=== PATIENT | male | born 1950 | race Two or more races ===

== ENCOUNTER → 2020-07-18 | Outpatient (CLI) | payer OTHER ==
[~2020-07-18] MED LIST: ACET500 PO; ALBU90OI INH; ASPI325 PO; Ambien5 MG PO; CARV6.25 PO; Coreg6.25 MG PO; DULERA 200 MCG/13 GM INH; ENTRESTO 24 MG1 EACH PO; FURO20 PO; FURO40 PO; LISI5 PO; Lasix40 MG PO; POTA10T PO; PRAV20 PO; SPIR25 PO; WARF5 PO; XARELTO20 MG PO
[2020-07-18 20:29] LABS: Anion Gap 6 mmol/L (6-16); Blood Urea Nitrogen 11 mg/dL (8-24); Bun/Creatinine Ratio 9.8 (12.0-20.0); CO2, Blood 26 mmol/L (21-32); Calcium, Blood 8.9 mg/dL (8.5-10.1); Chloride, Blood 109 mmol/L (98-108); Creatinine, Blood 1.12 mg/dL (0.60-1.20); Glomerular Filtration Rate >60 (60-); Glucose, Blood 88 mg/dL (70-99); Potassium, Blood 5.1 mmol/L (3.5-5.5); Sodium, Blood 141 mmol/L (136-145)
== END | disposition home or self-care (01) ==
LOC: LAB SHORT 18:28 → PLD 18:28
PROVIDERS: Nurse Practitioner
DX: I48.91 Unspecified atrial fibrillation (principal); I10 Essential (primary) hypertension
CPT/HCPCS: 80048; 84443

== ENCOUNTER → 2021-02-02 | Outpatient (CLI) | payer OTHER ==
[2021-02-02 17:07] LABS: BASOPHILS ABSOLUTE AUTO 0.07 K/mm3 (0.00-0.23); BASOPHILS PERCENT AUTO 1 % (0-2); EOSINOPHILS ABSOLUTE AUTO 0.19 K/mm3 (0.00-0.68); EOSINOPHILS PERCENT AUTO 2 % (0-6); Hemoglobin 18.2 g/dL (13.5-17.5); IMMATURE GRAN ABSOLUTE AUTO 0.06 K/mm3 (0.00-0.10); IMMATURE GRAN PERCENT AUTO 1 % (0-1); LYMPHOCYTES ABSOLUTE AUTO 1.79 K/mm3 (0.84-5.20); LYMPHOCYTES PERCENT AUTO 19 % (21-46); MONOCYTES ABSOLUTE AUTO 0.61 K/mm3 (0.16-1.47); MONOCYTES PERCENT AUTO 7 % (4-13); Mean Corpuscular HGB 32.3 pg (26.0-34.0); Mean Corpuscular HGB Conc 32.4 g/dL (31.5-36.5); Mean Corpuscular Volume 100 fL (80-100); NEUTROPHILS ABSOLUTE AUTO 6.68 K/mm3 (1.96-9.15); NEUTROPHILS PERCENT AUTO 71 % (41-73); Platelet Count 166 K/mm3 (150-400); RDW Coefficient Variation 13.6 % (11.7-14.2); RDW Standard Deviation 51.2 fL (35.1-46.3); Red Blood Cell Count 5.64 M/mm3 (4.30-5.90)
[2021-02-02 17:11] LABS: Hematocrit 56.2 % (37.0-53.0); Mean Platelet Volume 13.8 fL (9.1-12.4)
[2021-02-02 17:20] LABS: CHOL/HDL RATIO 5.8; Cholesterol 174 mg/dL (50-200); HDL Cholesterol 30 mg/dL (>39); LDL/HDL RATIO 3.9; Low Density Lipoprotein Chol 116 mg/dL (0-110); Triglycerides 140 mg/dL (30-160); Very Low Density Lipoprot Chol 28 mg/dL (6-32)
[2021-02-02 17:57] LABS: Alanine Aminotransfer (ALT/SGP 24 U/L (12-78); Albumin, Blood 3.7 g/dL (3.4-5.0); Albumin/Globulin Ratio 0.9 (0.8-1.8); Alk Phos 83 U/L (50-136); Anion Gap 4 mmol/L (6-16); Aspartate Aminotrans (AST/SGOT 8 U/L (12-37); Bilirubin, Total 0.6 mg/dL (0.1-1.0); Blood Urea Nitrogen 14 mg/dL (8-24); Bun/Creatinine Ratio 12.1 (12.0-20.0); CO2, Blood 26 mmol/L (21-32); Calcium, Blood 8.6 mg/dL (8.5-10.1); Chloride, Blood 111 mmol/L (98-108); Creatinine, Blood 1.16 mg/dL (0.60-1.20); Globulin, Blood 3.9 g/dL (2.2-4.0); Glomerular Filtration Rate >60 (60-); Glucose, Blood 107 mg/dL (70-99); Potassium, Blood 4.9 mmol/L (3.5-5.5); Sodium, Blood 141 mmol/L (136-145); Total Protein, Blood 7.6 g/dL (6.4-8.2)
== END | disposition home or self-care (01) ==
LOC: LAB SHORT 12:20
PROVIDERS: Nurse Practitioner
DX: E78.00 Pure hypercholesterolemia, unspecified (principal); I10 Essential (primary) hypertension; I48.91 Unspecified atrial fibrillation; N40.1 Benign prostatic hyperplasia with lower urinary tract symptoms; R73.03 Prediabetes
CPT/HCPCS: 80053; 80061; 83036; 84153; 84443; 85025

== ENCOUNTER 2022-12-13 15:45 | Inpatient (IN) | payer OTHER ==
[~2022-12-13] VITALS: Ht 180.3 cm; Wt 75.5 kg
[2022-12-13 16:30] LABS: BASOPHILS ABSOLUTE AUTO 0.08 K/mm3 (0.00-0.23); BASOPHILS PERCENT AUTO 1 % (0-2); EOSINOPHILS ABSOLUTE AUTO 0.34 K/mm3 (0.00-0.68); EOSINOPHILS PERCENT AUTO 4 % (0-6); Hematocrit 48.9 % (37.0-53.0); Hemoglobin 16.2 g/dL (13.5-17.5); IMMATURE GRAN ABSOLUTE AUTO 0.03 K/mm3 (0.00-0.10); IMMATURE GRAN PERCENT AUTO 0 % (0-1); LYMPHOCYTES ABSOLUTE AUTO 2.27 K/mm3 (0.84-5.20); LYMPHOCYTES PERCENT AUTO 24 % (21-46); MONOCYTES ABSOLUTE AUTO 0.61 K/mm3 (0.16-1.47); MONOCYTES PERCENT AUTO 6 % (4-13); Mean Corpuscular HGB 30.9 pg (26.0-34.0); Mean Corpuscular HGB Conc 33.1 g/dL (31.5-36.5); Mean Corpuscular Volume 93 fL (80-100); NEUTROPHILS ABSOLUTE AUTO 6.13 K/mm3 (1.96-9.15); NEUTROPHILS PERCENT AUTO 65 % (41-73); Platelet Count 182 K/mm3 (150-400); RDW Coefficient Variation 12.6 % (11.7-14.2); RDW Standard Deviation 43.7 fL (35.1-46.3); Red Blood Cell Count 5.25 M/mm3 (4.30-5.90); White Blood Cell Count 9.46 K/mm3 (4.00-11.30)
[2022-12-13 17:04] LABS: Albumin, Blood 3.8 g/dL (3.4-5.0); Bilirubin, Total 0.6 mg/dL (0.1-1.0); Bun/Creatinine Ratio 17.8 (12.0-20.0); Calcium, Blood 9.1 mg/dL (8.5-10.1); Creatinine, Blood 1.85 mg/dL (0.60-1.20); Globulin, Blood 3.7 g/dL (2.2-4.0); Magnesium, Blood 2.1 mg/dL (1.6-2.4); Potassium, Blood 4.7 mmol/L (3.5-5.5); Total Protein, Blood 7.5 g/dL (6.4-8.2)
[2022-12-13] MEDS ORDERED: ELIQUIS5 M2 PO (18:40)
[2022-12-13] MEDS ORDERED: METO50ER (18:40)
[2022-12-13] MEDS ORDERED: METO25 PO (18:40)
[2022-12-13] MEDS ORDERED: PACERONE100 M1 PO (18:40)
[2022-12-13] MEDS ORDERED: FINA5 PO (18:41)
[2022-12-13] MEDS ORDERED: TAMS.4ER PO (18:41)
[2022-12-13 19:07] LABS: International Normalized Ratio 1.19; Prothrombin Time Results 12.4 Sec (9.7-11.5)
[2022-12-14] VITALS (62 sets, daily range): BP systolic 62–134; BP diastolic 36–103
[2022-12-14] MEDS ORDERED: TRAM50 PO (02:10)
[2022-12-14] MEDS ORDERED: SPIRONOLACTONE25 MG PO (02:12)
[2022-12-14 03:36] LABS: BASOPHILS ABSOLUTE AUTO 0.05 K/mm3 (0.00-0.23); BASOPHILS PERCENT AUTO 1 % (0-2); EOSINOPHILS ABSOLUTE AUTO 0.25 K/mm3 (0.00-0.68); EOSINOPHILS PERCENT AUTO 3 % (0-6); Hematocrit 45.6 % (37.0-53.0); IMMATURE GRAN ABSOLUTE AUTO 0.03 K/mm3 (0.00-0.10); IMMATURE GRAN PERCENT AUTO 0 % (0-1); LYMPHOCYTES ABSOLUTE AUTO 1.72 K/mm3 (0.84-5.20); LYMPHOCYTES PERCENT AUTO 23 % (21-46); MONOCYTES ABSOLUTE AUTO 0.53 K/mm3 (0.16-1.47); MONOCYTES PERCENT AUTO 7 % (4-13); Mean Corpuscular HGB 30.7 pg (26.0-34.0); Mean Corpuscular HGB Conc 32.9 g/dL (31.5-36.5); Mean Corpuscular Volume 93 fL (80-100); NEUTROPHILS ABSOLUTE AUTO 4.88 K/mm3 (1.96-9.15); NEUTROPHILS PERCENT AUTO 65 % (41-73); Platelet Count 179 K/mm3 (150-400); RDW Coefficient Variation 12.7 % (11.7-14.2); RDW Standard Deviation 43.8 fL (35.1-46.3); Red Blood Cell Count 4.88 M/mm3 (4.30-5.90); White Blood Cell Count 7.46 K/mm3 (4.00-11.30)
[2022-12-14 03:54] LABS: Albumin, Blood 3.1 g/dL (3.4-5.0); Bilirubin, Total 0.8 mg/dL (0.1-1.0); Bun/Creatinine Ratio 20.6 (12.0-20.0); Calcium, Blood 8.2 mg/dL (8.5-10.1); Creatinine, Blood 1.41 mg/dL (0.60-1.20); Globulin, Blood 3.1 g/dL (2.2-4.0); Potassium, Blood 4.5 mmol/L (3.5-5.5); Total Protein, Blood 6.2 g/dL (6.4-8.2)
--- NOTE | 2022-12-14 05:49 | NUR ---
HAVE TITRATED LEVOPHED UP TO 6 MCG'S/MIN. MAP MAINTAINS > 65 PERCENT. PT HAS NO COMPLAINTS OF CHEST PAIN OR PRESSURE. DENIES VERTIGO. NO VISUAL CHANGES. DINKEY ENGINE OPERATOR EQUAL. PUSH/PULL WITH FEET EQUAL. PUPILS PERRLA. PT ATTEMPTS TO URINATE, AND IS UNABLE. PT ADDS THAT HE NEEDS TO SELF CATHETERIZE AT HOME ABOUT ONCE EVERY 2 TO 3 MONTHS. BLADDER SCAN DONE WITH 339 VALUE RETURNED. 14 BOLIVIAN COUDE CATHETER USED FOR STRAIGHT CATH. RETURN OF 400 ML YELLOW URINE. DID SEND SAMPLE TO LAB FOR UA. THIS TAKING INTO CONSIDERATION PT SELF CATHS AT HOME. WILL CONTINUE TO MONITOR PT, AND WILL REPORT OFF TO ONCOMING RN.
[2022-12-14 06:35] LABS: Source, Urine Straight Cath
[2022-12-14 06:40] LABS: Appearance, Urine Clear (Clear); Bilirubin, Urine Neg (Neg); Blood, Urine 2+ (Neg); Color, Urine Yellow (P-Yellow); Glucose Qualitative, Urine Neg (Neg); Ketones, Urine 2+ (Neg); Leukocyte Esterase, Urine 1+ (Neg); Nitrite, Urine Neg (Neg); Protein, Urine 1+ (Neg); Specific Gravity, Urine 1.015 (1.003-1.022); Urobilinogen, Urine NORM (Normal)
[2022-12-14 06:55] LABS: Squamous Epithelial Cells Few /hpf (Few)
[2022-12-14 06:56] LABS: Bacteria Mod /hpf
[2022-12-14 06:57] LABS: Mucus Mod (0-Heavy)
--- NOTE | 2022-12-14 07:00 | NUR ---
ASSUMPTION OF CARE PT RECEIVING LEVOPHED 6MCG/MIN. HE IS ALERT AND ORIENTED. PT STANDS AT BEDSIDE WITH MINIMAL ASSISTANCE TO USE URINAL AND VOIDED 100ML. BED IN LOW POSITION AND CALL LIGHT WITHIN REACH. SEE SHIFT ASSESSMENT.
--- NOTE | 2022-12-14 14:44 | NUR ---
UPDATE PT CONTINUES TO RECEIVE LEVOPHED 2MCG/MIN. ECHO COMPLETED THIS AM AND PACEMAKER INTERRIGATION DONE THIS AFTERNOON. PT DENIES DIZZINESS, VISION CHANGES, AND HEADACHE. PT STS HE HAS BEEN HAVING DIFFICULTY WITH HIS R HAND OVER THE LAST 2-3 WEEKS. HE GIVES THE EXAMPLE THAT WHEN HE IS TRYING TO TEXT HE TOUCHES THE WRONG LETTERS OR MULTIPLE BUTTONS AT THE SAME TIME. HE DENIES R LEG WEAKNESS DURING THESE TIMES. PT STS HE HAS NOT HAD THESE SYMPTOMS SINCE ADMISSION TO THE HOSPITAL. HIS , ALIA, AT BEDSIDE. SHE STS PT TAKES HIS MEDICATIONS DAILY BUT "HAS NOT HAD HIGH BLOOD PRESSURE FOR YEARS". PT'S FEELS THIS EPISODE MAY BE RELATED TO HIS MEDICATIONS.
[2022-12-14 15:33] LABS: Hemoglobin 15.5 g/dL (13.5-17.5)
[2022-12-14 17:51] LABS: Source, Urine Foley catheter
[2022-12-14 17:59] LABS: Appearance, Urine Hazy (Clear); Bilirubin, Urine Neg (Neg); Blood, Urine 5+ (Neg); Color, Urine Amber (P-Yellow); Glucose Qualitative, Urine Neg (Neg); Ketones, Urine 2+ (Neg); Leukocyte Esterase, Urine 2+ (Neg); Nitrite, Urine Pos (Neg); Protein, Urine 3+ (Neg); Specific Gravity, Urine 1.015 (1.003-1.022); Urobilinogen, Urine NORM (Normal)
--- NOTE | 2022-12-14 18:17 | NUR ---
SHIFT SUMMARY LEVOPHED ON STANDBY AT 1620, NS INFUSING AT 100ML/HR. PT IS ALERT AND ORIENTED WITH PLEASANT AFFECT. PT HAS DENIED VISION CHANGES AND WEAKNESS THROUGHOUT THE DAY. AFIB ON MONITOR WITH RATE 50S-80S. SBP CURRETNLY 120S-130S. HE IS ON RA WHILE AWAKE, 2L NC WHILE SLEEPING. ABDOMEN SOFT, BOWEL TONES ACTIVE, AND 1 BM THIS SHIFT. PT HAD DIFFICULTY WITH URINATING. USED STRAIGHT CATH TWICE THIS SHIFT. URINE THIS AM WAS PALE YELLOW, THIS AFTERNOON DARK LOAN/BROWN. INDWELLING ROBLEDO PLACED AND HAD IMMEDIATE DARK YELLOW/PINK OUTPUT. FAMILY AT BEDSIDE. BED IN LOW POSITION AND CALL LIGHT WITHIN REACH.
[2022-12-14 18:23] LABS: Red Blood Cells, Urine TNTC /hpf (0-2)
[2022-12-14 18:24] LABS: Bacteria Many /hpf
[2022-12-14 18:26] LABS: Squamous Epithelial Cells Rare /hpf (Few); Yeast/Fungi Urine Many /hpf
--- NOTE | 2022-12-14 21:50 | NUR ---
ASSUMED CARE ASSUMED CARE AT 1900. PT A/O X 4. EQUAL HOUSEHOLD MANAGER STRENGTH AND EQUAL FOOT PUSH/PULL. DENIES DIZZINESS, VISION CHANGES, OR HEADACHE. VSS. DIFFICULT TO GET ACCURATE BP D/T PT LAYING ON SIDE TO SLEEP. BP WNL WHEN PT IS LAYING ON BACK. ON RA WHEN AWAKE AND 2LNC WHEN SLEEPING. AFIB RATE 60-70'S. CALL TO HOSP REGARDING PT REQUESTING HOME DOSE OF AMBIEN. ORDER RECEIVED FOR MELATONIN D/T MONITORING PT NEURO STATUS. EDUCATION PROVIDED TO PT AND PT AGREEABLE TO POC. ROBLEDO PATENT AND DRAINING TO GRAVITY. MINIMAL LEAKING NOTED WHEN PT BARES DOWN. URINE CLEAR YELLOW IN TUBE.
--- NOTE | 2022-12-14 23:56 | NUR ---
UPDATE PT CALLED THIS RN INTO ROOM APPROX 2310. PT STATED HE JUST HAD AN EPISODE OF LIGHTHEADEDNESS, SOB, FEELING HOT, NAUSEOUS, AND THAT THE "ROOM WAS SPINNING". PT STATED THIS EPISODE LASTED 2-3 MINS. DENIES ANY VISION CHANGES. NEURO EXAM COMPLETED. NO NEW CHANGES. VSS.
[2022-12-15] VITALS (27 sets, daily range): BP systolic 77–151; BP diastolic 52–92
[2022-12-15 03:39] LABS: BASOPHILS ABSOLUTE AUTO 0.04 K/mm3 (0.00-0.23); BASOPHILS PERCENT AUTO 1 % (0-2); EOSINOPHILS ABSOLUTE AUTO 0.29 K/mm3 (0.00-0.68); EOSINOPHILS PERCENT AUTO 4 % (0-6); Hematocrit 42.6 % (37.0-53.0); Hemoglobin 14.2 g/dL (13.5-17.5); IMMATURE GRAN ABSOLUTE AUTO 0.02 K/mm3 (0.00-0.10); IMMATURE GRAN PERCENT AUTO 0 % (0-1); LYMPHOCYTES ABSOLUTE AUTO 1.48 K/mm3 (0.84-5.20); LYMPHOCYTES PERCENT AUTO 21 % (21-46); MONOCYTES ABSOLUTE AUTO 0.58 K/mm3 (0.16-1.47); MONOCYTES PERCENT AUTO 8 % (4-13); Mean Corpuscular HGB 30.8 pg (26.0-34.0); Mean Corpuscular HGB Conc 33.3 g/dL (31.5-36.5); Mean Corpuscular Volume 92 fL (80-100); NEUTROPHILS ABSOLUTE AUTO 4.52 K/mm3 (1.96-9.15); NEUTROPHILS PERCENT AUTO 65 % (41-73); Platelet Count 134 K/mm3 (150-400); RDW Coefficient Variation 12.5 % (11.7-14.2); RDW Standard Deviation 43.1 fL (35.1-46.3); Red Blood Cell Count 4.61 M/mm3 (4.30-5.90); White Blood Cell Count 6.93 K/mm3 (4.00-11.30)
[2022-12-15 03:55] LABS: Bun/Creatinine Ratio 13.1 (12.0-20.0); Creatinine, Blood 1.07 mg/dL (0.60-1.20); Potassium, Blood 4.4 mmol/L (3.5-5.5)
--- NOTE | 2022-12-15 06:01 | NUR ---
SHIFT SUMMARY SEE PRIOR NOTES. PT HAD ONE REPORTED EPISODE OF DIZZINESS THIS SHIFT THAT SPONTANEOUSLY RESOLVED. NO OTHER NEURO CHANGES NOTED. VSS. BP SOFT AT TIMES. MAP GREATER THEN 65. ON 2LNC WHEN ASLEEP. PT UP TO CHAIR ONCE THIS AM AND THEN BACK TO BED. ROBLEDO IN PLACE FOR RETENTION, DRAINING TO GRAVITY.
--- NOTE | 2022-12-15 07:00 | NUR ---
ASSUMPTION OF CARE PT ALERT AND ORIENTED. PT C/O CHRONIC BACK/SHOULDER PAIN. PT ASSISTED TO RECLINER. PT STS HE HAD ONE EPISODE OF VISION CHANGES AND DIZZINESS OVERNIGHT. HE DESCRIBES THIS HE WAS ASLEEP AND FEELING " IF THE WORLD WAS SPINNING" AND "BLURRY, ALMOST LIKE DOUBLE VISION". HE STS THIS LASTED APPROX 3-5 MIN AND RESOLVED. PT STS HE FEELS MOSTLY BACK TO HIS BASELINE OTHER THAN HIS R HAND HAS DIFFICULTY WITH FINE MOTOR SKILLS AT TIMES. HE IS ON RA WHILE AWAKE WITH SPO2 >93%. BP STABLE WITH MAP >65. AFIB ON MONITOR WITH RATE 70S-80S. ROBLEDO PATENT AND DRAINING YELLOW URINE TO GRAVITY. SEE SHIFT ASSESSMENT.
--- NOTE | 2022-12-15 10:00 | NUR ---
TRANSFER TO PCU PT TRANSITIONED TO PCU STATUS. PT VERBALIZES UNDERSTANDING AND STS HE WILL NOTIFY HIS FAMILY OF THE ROOM CHANGE. ALL BELONGINGS TRANSFERRED WITH PT. BEDSIDE REPORT GIVEN TO RODNEY DWYER.
--- NOTE | 2022-12-15 18:58 | NUR ---
PT ARRIVED FROM ICU THIS MORNING, RECIEVED BEDSIDE REPORT FROM DAYNE DWYER. PT A/O X4, ANSWERIN GQUESTIONS APPROPRIATELY IN FULL SENTENCES. PT ABLE TO AMBULATE FROM CHAIR TO GURNEY WITHOUT DIFFICULTY. ROBLEDO IN PLACE, THIS IS DAY 2 OF ROBLEDO. PT WITH DARK YELLOW URINE DRAINING TO GRAVITY. BLOOD PRESSURES ARE BNOTED TO BE SOFT T/O THE DAY. PT REPORTS BACK PAIN, WHICH IS CONTROLED WITH TRAMADOL AND TYLENOL. CORTISOL LEVELS WERE DRAWN TODAY.
--- NOTE | 2022-12-15 20:10 | NUR ---
ASSUMED PT CARE FROM RODNEY DWYER ON . PT IS A&OX4. DENIES ANY COMPLAINTS AT THIS TIME. STATES VISION IS AT BASELINE FOR HIM. NO LIGHTHEADEDNESS OR DIZZIENESS. DENIES ANY SOB, CHEST PAIN/PRESSURE, OR NAUSEA. ROBLEDO CATHETER DRIANING TEA COLORED URINE WITHOUT DIFFICULTY. VITAL SIGNS STABLE. DENIES NEEDS AT THIS TIME. CALL LIGHT IN REACH. BROTHER ATTENTIVE AT BEDSIDE.
--- NOTE | 2022-12-16 00:47 | NUR ---
PT REPORTS FEELING ROBLEDO IS LEAKING, SMALL AMOUNT OF URINE NOTED ON CHUCKS. LINENS CHANGED. ROBLEDO FLUSHED WITH STERILE WATER, SLUGGISH RETURN RECEIVED BUT ABLE TO ASPIRATE FULL AMOUNT OF FLUID BACK, NO CLOTS OR SEDIMENT NOTED. BLADDER SCANNED, FOUND TO BE EMPTY. INFORMED TO NOTIFY IF SENSATION OCCURS AGAIN. CALL LIGHT IN REACH.
[2022-12-16 04:17] VITALS: BP 98/59
--- NOTE | 2022-12-16 04:35 | NUR ---
PT COMPLAINING OF OCCAIONALLY FEELING "LIKE I NEED TO PUSH" TO VOID, SMALL AMOUNT OF LEAKGE NOTED AROUND CATHETER. ROBLEDO CATHETER [place] DEFLATED, FOUND TO ONLY HAVE 8CC IN [place]. [place] FILLED WITH 10CC DIRECTED ON ROBLEDO PORT. PT INFORMED TO CALL IF HE FEELS NEED TO PUSH WITH ROBLEDO IN PLACE. CALL LIGHT IN REACH. BED ALARM ON.
[2022-12-16 08:54] VITALS: BP 99/69
[2022-12-16 12:54] VITALS: BP 101/60
[2022-12-16 15:21] LABS: Hematocrit 44.7 % (37.0-53.0); Hemoglobin 14.9 g/dL (13.5-17.5)
[2022-12-16 17:08] VITALS: BP 102/61
--- NOTE | 2022-12-16 18:20 | NUR ---
PT RESTING WELL IN BED T/O THE DAY. PT HAS BEEN STARTED BACK ON FLOMAX ON PROSCAR THIS EVENING AND WAS STARTED ON FLUDOCORTISONE WELL THIS EVENING. PT HAD POOR APPETITE T/O THE DAY, BUT FAMILY DID BRING IN "IN AND OUT" BURGER FOR PT AND HE DID EAT AN ENTIRE CHEESEBURGER FOR DINNER WITH MEDICATIONS. VSS, PRESSURES WERE A BIT SOFT BUT STABLE. A/O X4. DENIES CP OR SOB. CONTINUES TO DRAIN TEA COLORED URINE TO GRAVITY FROM CATHETER.
[2022-12-16 19:23] VITALS: BP 114/99
--- NOTE | 2022-12-16 19:34 | NUR ---
ASSSUMED PT CARE FROM RODNEY DWYER ON . PT A&OX4. SITTING UP IN BED WATCHING TV. DENIES ANY VISION CHANGES OR DIZZIENESS TODAY. REPORTS WEAKNESS IN RIGHT ARM IS "NEITHER BETTER NOR WORSE THEN IT HAS BEEN". DENIES ANY CHEST PAIN, SOB, OR NAUSEA. ROBLEDO CATHETER DRAINING TEA COLORED URINE WITHOUT DIFFICULTY. PT REPORTS "I HAVEN'T FELT LIKE I NEEDED TO PUSH IN A WHILE, THEY GAVE ME FLOMAX". WILL CONTINUE TO MONITOR. DENIES NEEDS AT THIS TIME. CALL LIGHT IN REACH.
[2022-12-17 00:22] VITALS: BP 91/66
[2022-12-17 04:00] VITALS: BP 96/66
[2022-12-17 04:18] LABS: Bun/Creatinine Ratio 8.5 (12.0-20.0); Calcium, Blood 8.4 mg/dL (8.5-10.1); Creatinine, Blood 1.17 mg/dL (0.60-1.20)
--- NOTE | 2022-12-17 06:35 | NUR ---
SHIFT SUMMARY: NO ACUTE CHANGES NOTED DURING THIS SHIFT. PT SLEEPING COMFORTABLY IN BED FOR THE MAJORITY OF THIS SHIFT. HR S-FIB IN THE 90'S, WELL CONTROLED. PLACED ON 2LPM VIA NC WHEN SLEEPING DUE TO DESATRUATION INTO 80'S. WHEN AWAKE ON RA. CALL LIGHT IN REACH.
[2022-12-17 08:09] VITALS: BP 106/90
[2022-12-17 11:15] LABS: Free Thyroxine 1.47 ng/dL (0.70-1.60); Thyroid Stimulating Hormone 2.53 uIU/mL (0.360-4.800)
[2022-12-17 11:23] VITALS: BP 118/74
--- NOTE | 2022-12-17 11:40 | NUR ---
ROBLEDO REMOVED PER MD ORDER
[2022-12-17 17:06] VITALS: BP 115/77
--- NOTE | 2022-12-17 17:46 | NUR ---
SHIFT SUMMARY PT ALERT AND ORIENTED X 4. HR STABLE. TACHY W/EXERTION. MD AWARE. BP STABLE. SCHEDULED MIDODRINE GIVEN. PT SBA IN ROOM. NO CP OR PRESSURE REPORTED. PT AGITATED THIS AFTERNOON. PT WANTING TO BE DISHCARGED HOME, RN EXPLAINED TO PT THAT ORDERS FOR OXIMETRY STUDY W/RT TO BE DONE TONIGHT D/T NEED FOR HOME 02 AND NO ORDERS FOR DC AT THIS TIME. MD NOTIFIED AND MD TO BEDSIDE TO DISCUSS REASONING FOR PT TO STAY IN HOSPITAL. PT STATES UNDERSTANDING. FAMILY AT BEDSIDE DURING CONVERSATION. OXYGEN SATURATION MAINTAINED ABOVE 92% ON RA WHILE AWAKE. PT PLACED ON 2 L VIA NC WHEN SLEEPING D/T DESAT INTO 80'S. CALL LIGHT WITHIN REACH. WILL CONT TO MONITOR UNTIL REPORT GIVEN TO NIGHTSHIFT RN.
[2022-12-17 20:00] VITALS: BP 106/60
--- NOTE | 2022-12-17 20:47 | NUR ---
ASSUMED PT CARE FROM YOSVANY DWYER ON . PT IS A&OX4. DENIES ANY VISION CHANGES THIS EVENING. DENIES ANY SOB OR CHEST PAIN. AMBUALTING TO BATHROOM, VOIDING WITHOUT DIFFICULTY AT THIS TIME. VITAL SIGNS STABLE. DENIES NEEDS AT THIS TIME. CALL LIGHT IN REACH.
[2022-12-18] VITALS (7 sets, daily range): BP systolic 96–153; BP diastolic 56–100
--- NOTE | 2022-12-18 01:11 | NUR ---
PT RESTING IN BED WITH EYES CLOSED. SLEEP STUDY IN PROGRESS. CALL LIGHT IN REACH.
[2022-12-18 05:56] LABS: Albumin, Blood 3.2 g/dL (3.4-5.0); Albumin/Globulin Ratio 0.9 (0.8-1.8); Bilirubin, Total 0.7 mg/dL (0.1-1.0); Bun/Creatinine Ratio 12.9 (12.0-20.0); Calcium, Blood 9.2 mg/dL (8.5-10.1); Creatinine, Blood 1.24 mg/dL (0.60-1.20); Globulin, Blood 3.5 g/dL (2.2-4.0); Potassium, Blood 4.2 mmol/L (3.5-5.5); Total Protein, Blood 6.7 g/dL (6.4-8.2)
--- NOTE | 2022-12-18 06:00 | NUR ---
SHIFT SUMMARY: NO ACUTE CHANGES NOTED OVERNIGHT. SLEEP STUDY COMPLETED BY RESPIRATORY THERAPY. PT HAS DENIED ANY COMPLAINTS OR CONCERNS. CALL LIGHT IN REACH.
--- NOTE | 2022-12-18 08:54 | NUR ---
ASSUMED CARE OF PT AT 0700. 0830 PT UP OOB AMBULATING TO RESTROOM, HR NOTED TO INCREASE TO 150-160s. PT ASYMPTOMATIC AND HR DECREASED TO 90-100s WHEN BACK IN BED RESTING. DR PARMAR NOTIFIED, PT TAKES AMIO AND METOP AT HOME, NEW ORDERS RECEIVED.
--- NOTE | 2022-12-18 17:48 | NUR ---
SHIFT SUMMARY PT'S HR HAS BEEN CONTROLED WELL ON METOP AND AMIO DOSAGE, RESTING HR IN THE 70s AND 100s WITH ACTIVITY. PT HAD CT SCAN TODAY AND HAS AN ADDITIONAL CT SCAN ORDERED, HAD TO BE POSTPONED UNTIL TOMORROW D/T CONTRAST LOAD PER RADIOLOGY. NO OTHER CHANGES T/O THE SHIFT. SEE DOCUMENTED VS AND ASSESSMENT. PT IS ABLE TO AMBULATE IN ROOM INDEPENDENTLY, USE CALL LIGHT FOR NEEDS. WILL CONTINUE TO MONITOR AND GIVE REPORT TO NOC SHIFT RN.
[2022-12-19 04:33] VITALS: BP 96/69
[2022-12-19 04:51] LABS: BASOPHILS ABSOLUTE AUTO 0.06 K/mm3 (0.00-0.23); BASOPHILS PERCENT AUTO 1 % (0-2); EOSINOPHILS ABSOLUTE AUTO 0.23 K/mm3 (0.00-0.68); EOSINOPHILS PERCENT AUTO 2 % (0-6); Hematocrit 41.5 % (37.0-53.0); Hemoglobin 13.8 g/dL (13.5-17.5); IMMATURE GRAN ABSOLUTE AUTO 0.04 K/mm3 (0.00-0.10); IMMATURE GRAN PERCENT AUTO 0 % (0-1); LYMPHOCYTES ABSOLUTE AUTO 1.83 K/mm3 (0.84-5.20); LYMPHOCYTES PERCENT AUTO 19 % (21-46); MONOCYTES ABSOLUTE AUTO 0.66 K/mm3 (0.16-1.47); MONOCYTES PERCENT AUTO 7 % (4-13); Mean Corpuscular HGB 30.5 pg (26.0-34.0); Mean Corpuscular HGB Conc 33.3 g/dL (31.5-36.5); Mean Corpuscular Volume 92 fL (80-100); NEUTROPHILS ABSOLUTE AUTO 6.84 K/mm3 (1.96-9.15); NEUTROPHILS PERCENT AUTO 71 % (41-73); Platelet Count 205 K/mm3 (150-400); RDW Coefficient Variation 12.5 % (11.7-14.2); RDW Standard Deviation 42.3 fL (35.1-46.3); Red Blood Cell Count 4.53 M/mm3 (4.30-5.90); White Blood Cell Count 9.66 K/mm3 (4.00-11.30)
[2022-12-19 05:18] LABS: Bun/Creatinine Ratio 15.8 (12.0-20.0); Calcium, Blood 8.6 mg/dL (8.5-10.1); Creatinine, Blood 1.2 mg/dL (0.60-1.20); Potassium, Blood 4.1 mmol/L (3.5-5.5)
--- NOTE | 2022-12-19 05:29 | NUR ---
SHIFT SUMMARY PT A&Ox4, CALLS AND COMMUNICATES NEEDS APPROPRIATELY, IND IN ROOM. Sp02> 92% ON RA WHILE AWAKE, 2L VIA NC WHILE ASLEEP, DENIES SOB. BP SOFT WITH SBP 90's, ASYMPTOMATIC. AFIB 80's, DENIES CP/PRESSURE. PT WITH NO C/O OF PAIN. CONTINENT OF URINE AND BOWEL. NO OTHER EVENTS, WILL REPORT TO ONCOMING RN.
[2022-12-19 07:22] VITALS: BP 96/58
[2022-12-19 10:59] VITALS: BP 94/59
[2022-12-19 14:03] VITALS: BP 95/81
[2022-12-19] MEDS ORDERED: MIDO5 PO (16:51)
[2022-12-19] MEDS ORDERED: FLUDROCORTISON0.1 M1 PO (16:51)
[2022-12-19] MEDS ORDERED: HYDCOR10 PO (16:51)
== END 2022-12-19 17:17 | disposition home or self-care (01) | DRG 123 ==
LOC: ER 15:45 → ICUW 22:39 → PCU 22:39 → ICUW 12-14 01:38 → PCU 12-15 09:50
PROVIDERS: Family Medicine; Family Medicine Adult Medicine; Physician Assistant; Student in an Organized Health Care Education/Training Program; ADMIT Internal Medicine
PROC: 3E033XZ Introduction of Vasopressor into Peripheral Vein, Percutaneous Approach (ICD-10-PCS; principal; 2022-12-13)
DX: G45.3 Amaurosis fugax (principal); I50.23 Acute on chronic systolic (congestive) heart failure; E87.1 Hypo-osmolality and hyponatremia; I48.20 Chronic atrial fibrillation, unspecified; N17.9 Acute kidney failure, unspecified; R57.9 Shock, unspecified; E27.40 Unspecified adrenocortical insufficiency; E78.00 Pure hypercholesterolemia, unspecified; H02.402 Unspecified ptosis of left eyelid; H57.03 Miosis; I70.0 Atherosclerosis of aorta; I11.0 Hypertensive heart disease with heart failure; R91.1 Solitary pulmonary nodule; F17.210 Nicotine dependence, cigarettes, uncomplicated; Z98.890 Other specified postprocedural states; Z79.02 Long term (current) use of antithrombotics/antiplatelets; Z95.1 Presence of aortocoronary bypass graft; Z79.899 Other long term (current) drug therapy; Z79.01 Long term (current) use of anticoagulants; Z95.0 Presence of cardiac pacemaker
CPT/HCPCS: 36415; 51701; 51702; 70496; 70498; 74170; 74177; 80048; 80053; 80400; 81001; 82024; 82533; 83735; 84439; 84443; 85014; 85018; 85025; 85610; 87086; 93005; 93010; 94760; 94762; 96361; 96365-59; 96366-59; 99291-25; A9270; C8929; G0103; J0834; J7030; J7060; Q9957; Q9967

== ENCOUNTER 2023-03-08 17:37 | Emergency (ER) | payer OTHER ==
[~2023-03-08] VITALS: Ht 172.7 cm; Wt 84.4 kg
[~2023-03-08 17:37] MED LIST changes: +ELIQUIS5 M2 PO; +FINA5 PO; +FLUDROCORTISON0.1 M1 PO; +HYDCOR10 PO; +METO25 PO; +METO50ER; +MIDO5 PO; +PACERONE100 M1 PO; +SPIRONOLACTONE25 MG PO; +TAMS.4ER PO; +TRAM50 PO
[2023-03-08 18:26] LABS: BASOPHILS ABSOLUTE AUTO 0.14 K/mm3 (0.00-0.23); BASOPHILS PERCENT AUTO 2 % (0-2); EOSINOPHILS ABSOLUTE AUTO 0.65 K/mm3 (0.00-0.68); EOSINOPHILS PERCENT AUTO 8 % (0-6); Hematocrit 40.3 % (37.0-53.0); Hemoglobin 13.3 g/dL (13.5-17.5); IMMATURE GRAN ABSOLUTE AUTO 0.04 K/mm3 (0.00-0.10); IMMATURE GRAN PERCENT AUTO 1 % (0-1); LYMPHOCYTES ABSOLUTE AUTO 2.45 K/mm3 (0.84-5.20); LYMPHOCYTES PERCENT AUTO 31 % (21-46); MONOCYTES ABSOLUTE AUTO 0.74 K/mm3 (0.16-1.47); MONOCYTES PERCENT AUTO 9 % (4-13); Mean Corpuscular Volume 91 fL (80-100); NEUTROPHILS ABSOLUTE AUTO 4.01 K/mm3 (1.96-9.15); NEUTROPHILS PERCENT AUTO 50 % (41-73); Platelet Count 371 K/mm3 (150-400); RDW Coefficient Variation 14.6 % (11.7-14.2); RDW Standard Deviation 47.9 fL (35.1-46.3); Red Blood Cell Count 4.43 M/mm3 (4.30-5.90); White Blood Cell Count 8.03 K/mm3 (4.00-11.30)
[2023-03-08 18:29] LABS: Mean Platelet Volume 13.7 fL (9.1-12.4)
[2023-03-08 18:50] LABS: Albumin, Blood 3.1 g/dL (3.4-5.0); Bilirubin, Total 0.4 mg/dL (0.1-1.0); Bun/Creatinine Ratio 12.2 (12.0-20.0); Calcium, Blood 8.3 mg/dL (8.5-10.1); Creatinine, Blood 0.9 mg/dL (0.60-1.20); Globulin, Blood 3.1 g/dL (2.2-4.0); Potassium, Blood 3.7 mmol/L (3.5-5.5); Total Protein, Blood 6.2 g/dL (6.4-8.2)
[2023-03-08 21:08] VITALS: BP 119/84
== END 2023-03-08 22:38 | disposition home or self-care (01) ==
LOC: ER 17:37
PROVIDERS: Emergency Medicine
DX: I11.0 Hypertensive heart disease with heart failure (principal); I50.9 Heart failure, unspecified; Z95.1 Presence of aortocoronary bypass graft; F17.210 Nicotine dependence, cigarettes, uncomplicated
CPT/HCPCS: 71046; 80053; 83880; 84484; 85025; 93005; 93010; 96374; 99285-25; J1940

== ENCOUNTER 2023-04-09 12:22 | Inpatient (IN) | payer OTHER ==
[~2023-04-09] VITALS: Ht 172.7 cm; Wt 82.6 kg
[2023-04-09 13:27] LABS: BASOPHILS ABSOLUTE AUTO 0.09 K/mm3 (0.00-0.23); BASOPHILS PERCENT AUTO 1 % (0-2); EOSINOPHILS PERCENT AUTO 5 % (0-6); Hematocrit 44.4 % (37.0-53.0); Hemoglobin 14.6 g/dL (13.5-17.5); IMMATURE GRAN ABSOLUTE AUTO 0.03 K/mm3 (0.00-0.10); IMMATURE GRAN PERCENT AUTO 0 % (0-1); LYMPHOCYTES ABSOLUTE AUTO 2.06 K/mm3 (0.84-5.20); LYMPHOCYTES PERCENT AUTO 27 % (21-46); MONOCYTES ABSOLUTE AUTO 0.75 K/mm3 (0.16-1.47); MONOCYTES PERCENT AUTO 10 % (4-13); Mean Corpuscular HGB 29.8 pg (26.0-34.0); Mean Corpuscular HGB Conc 32.9 g/dL (31.5-36.5); Mean Corpuscular Volume 91 fL (80-100); NEUTROPHILS ABSOLUTE AUTO 4.18 K/mm3 (1.96-9.15); NEUTROPHILS PERCENT AUTO 56 % (41-73); Platelet Count 180 K/mm3 (150-400); RDW Coefficient Variation 13.5 % (11.7-14.2); White Blood Cell Count 7.51 K/mm3 (4.00-11.30)
[2023-04-09] MEDS ORDERED: FOLI1 PO (13:28)
[2023-04-09] MEDS ORDERED: ENTRESTO 24 MG1 EACH (13:29)
[2023-04-09 13:35] LABS: Mean Platelet Volume 13.8 fL (9.1-12.4)
[2023-04-09 13:41] LABS: Albumin, Blood 3.2 g/dL (3.4-5.0); Albumin/Globulin Ratio 0.9 (0.8-1.8); Bilirubin, Total 1.2 mg/dL (0.1-1.0); Bun/Creatinine Ratio 11.1 (12.0-20.0); Calcium, Blood 8.9 mg/dL (8.5-10.1); Creatinine, Blood 1.98 mg/dL (0.60-1.20); Globulin, Blood 3.6 g/dL (2.2-4.0); Potassium, Blood 5.1 mmol/L (3.5-5.5); Total Protein, Blood 6.8 g/dL (6.4-8.2)
[2023-04-09 22:30] VITALS: BP 94/70
--- NOTE | 2023-04-09 22:30 | NUR ---
PATIENT ARRIVED TO ICU 14, PCU STATUS, FROM ED VIA GURNEY. PATIENT ABLE TO AMBULATE FROM GURNEY TO BED WITHOUT DIFFICULTY. NO C/O DIZZINESS OR LIGHTHEADED . PLACED ON ICU MONITORS. PATIENT ABLE TO PROVIDE ADMIT HX WILL NEED TO CLARIFY HOME MEDICATION WITH HIS . PATIENT KONRAD PO WITHOUT DIFFICULTY
[2023-04-09 22:32] VITALS: BP 106/77
[2023-04-09 22:45] VITALS: BP 94/70
[2023-04-09 23:00] VITALS: BP 98/56
[2023-04-09 23:15] VITALS: BP 98/76
[2023-04-10] VITALS (18 sets, daily range): BP systolic 70–107; BP diastolic 46–95
--- NOTE | 2023-04-10 00:30 | NUR ---
PATIENT SLEEPING, BIOX DOWN TO 88% PATIENT VERBALIZED THAT HE WEARS OXYGEN 3L/NC AT NIGHT AT HOME. VERBALIZED THAT HE IS UNABLE TO WEAR BIPAP
[2023-04-10 04:17] LABS: Source, Urine Clean Catch
[2023-04-10 04:44] LABS: Bilirubin, Urine Neg (Neg); Blood, Urine 2+ (Neg); Glucose Qualitative, Urine Neg (Neg); Ketones, Urine 3+ (Neg); Leukocyte Esterase, Urine 3+ (Neg); Nitrite, Urine Neg (Neg); Protein, Urine 2+ (Neg); Specific Gravity, Urine 1.025 (1.003-1.022); Urobilinogen, Urine 1+ (Normal)
[2023-04-10 05:48] LABS: Appearance, Urine Clear (Clear); Color, Urine Yellow (P-Yellow)
[2023-04-10 05:53] LABS: Bacteria Mod /hpf; Hyaline Casts 0-2 /lpf (0-2); Red Blood Cells, Urine 0-2 /hpf (0-2); Squamous Epithelial Cells Few /hpf (Few); White Blood Cells, Urine 25-50 /hpf (0-5)
--- NOTE | 2023-04-10 06:30 | NUR ---
SUMMARY PATIENT SLEEPING OFF AND ON T/O NIGHT. PATIENT HAS OXYGEN 3L/NC IN PLACE FOR SLEEP SHE DOES AT HOME. PATIENT UP TO SIDE OF BED WITH MIN ASSIST, NO C/O DIZZINESS.
[2023-04-10 06:52] LABS: Bun/Creatinine Ratio 14.1 (12.0-20.0); Calcium, Blood 8.9 mg/dL (8.5-10.1); Creatinine, Blood 1.63 mg/dL (0.60-1.20)
--- NOTE | 2023-04-10 07:00 | NUR ---
ASSUME CARE: I have assumed care of this patient.
[2023-04-10 14:08] LABS: Potassium, Blood 5.2 mmol/L (3.5-5.5)
[2023-04-10] MEDS ORDERED: ENTRESTO 24 MG1 EACH PO (15:36)
--- NOTE | 2023-04-10 16:53 | NUR ---
PROVIDER UPDATE: Dr March notified of pt's most recent BP. See new order for lopressor.
--- NOTE | 2023-04-10 17:23 | NUR ---
SHIFT/TRANSFER SUMMARY: Pt taken to PCU 8 via wheelchair by CUTTER GRIND TOOL TECHNICIAN. Pt independently ambulatory today. He uses call light appropriately. at bedside and supportive.
--- NOTE | 2023-04-10 18:21 | NUR ---
CARE ASSUMPTION PT ARRIVED TO PCU FROM ICU VIA WHEELCHAIR AT APPROX 1730. PT AMBULATED INDEPENDENTLY FROM WHEELCHAIR TO BED. PT A&OX4. SP02>90% ON RA. TELEMETRY SHOWS AFIB, HR 70'S. BP SOFT. METOPROLOL RESTARTED PER SEED CORN MANAGER PRODUCTION THIS EVENING. PT DENIES DIZZINESS. IN ROOM W/ PT. PT ORIENTED TO ROOM, CALL LIGHT. RESTING IN BED, CALL LIGHT INREACH.
--- NOTE | 2023-04-10 18:49 | NUR ---
HYPOTENSIVE PT HYPOTENSIVE THIS EVENING, SEE VITALS. CALL PLACED TO MD HERNANDEZ. MD HERNANDEZ W/ ORDERS TO GIVE SCHEDULED NOC MIDODRINE NOW.
--- NOTE | 2023-04-10 20:37 | NUR ---
CALLED DR. AURELIA RODRIGUEZ ABOUT HYPOTENSION PT'S BP IS LOW, 68/49 (56). I GOT A 250CC BOLUS ORDERED AND IT BROUGHT UP HIS BP TO 79/54 (63). MONITORING AT THIS TIME.
[2023-04-11] VITALS (10 sets, daily range): BP systolic 75–105; BP diastolic 53–74
[2023-04-11 04:25] LABS: BASOPHILS ABSOLUTE AUTO 0.07 K/mm3 (0.00-0.23); BASOPHILS PERCENT AUTO 1 % (0-2); EOSINOPHILS ABSOLUTE AUTO 0.08 K/mm3 (0.00-0.68); EOSINOPHILS PERCENT AUTO 1 % (0-6); Hematocrit 42.2 % (37.0-53.0); IMMATURE GRAN ABSOLUTE AUTO 0.03 K/mm3 (0.00-0.10); IMMATURE GRAN PERCENT AUTO 0 % (0-1); LYMPHOCYTES ABSOLUTE AUTO 2.45 K/mm3 (0.84-5.20); LYMPHOCYTES PERCENT AUTO 20 % (21-46); MONOCYTES ABSOLUTE AUTO 0.92 K/mm3 (0.16-1.47); MONOCYTES PERCENT AUTO 8 % (4-13); Mean Corpuscular HGB 30.1 pg (26.0-34.0); Mean Corpuscular HGB Conc 33.2 g/dL (31.5-36.5); Mean Corpuscular Volume 91 fL (80-100); NEUTROPHILS ABSOLUTE AUTO 8.55 K/mm3 (1.96-9.15); NEUTROPHILS PERCENT AUTO 71 % (41-73); Platelet Count 206 K/mm3 (150-400); RDW Standard Deviation 46.6 fL (35.1-46.3); Red Blood Cell Count 4.65 M/mm3 (4.30-5.90)
[2023-04-11 04:42] LABS: Albumin, Blood 3.2 g/dL (3.4-5.0); Anion Gap 6 mmol/L (6-16); Blood Urea Nitrogen 25 mg/dL (8-24); Bun/Creatinine Ratio 17.5 (12.0-20.0); CO2, Blood 26 mmol/L (21-32); Calcium, Blood 8.2 mg/dL (8.5-10.1); Chloride, Blood 107 mmol/L (98-108); Creatinine, Blood 1.43 mg/dL (0.60-1.20); Glomerular Filtration Rate 52 (60-); Glucose, Blood 113 mg/dL (70-99); Phosphorus, Blood 3.1 mg/dL (2.5-4.9); Potassium, Blood 4.2 mmol/L (3.5-5.5); Sodium, Blood 139 mmol/L (136-145)
[2023-04-11 04:54] LABS: Mean Platelet Volume 14.1 fL (9.1-12.4)
--- NOTE | 2023-04-11 05:18 | NUR ---
BLADDER SCAN 501. PT STATES HE FEELS RETENTION BUT HAS DOES NOT FEEL THE URGE TO GO YET. HE REFUSED A STRAIGHT CATH AT THIS TIME, BUT SAID HE WILL TRY TO GO AT 0600 AND IF HE CAN NOT THEN HE WILL LET ME STRAIGHT CATH HIM.
--- NOTE | 2023-04-11 05:59 | NUR ---
SHIFT SUMMARY PT IS A&OX4, AND HAS NOT SLEPT MUCH THIS SHIFT. PT HAS BEEN HYPOTENSIVE THIS SHIFT AND HAS RECIEVED A 250CC BOLUS AND HAS HAD MIDODRINE 10MG AT 0000. WE HAVE BEEN MONITORING BP'S Q15MIN - A50PEPH. HE HAS SOME CHRONIC URINARY RETENTION. SEE PREVIOUS NOTES FOR MORE INFORMATION. PT IS ON 3L NC WHILE HE SLEEPS BUT HAS HAD NO COMPLAINTS OF SOB. SP02 >95%. HE STATES THAT HE WEARS 3L WHEN HE SLEEPS AT HOME. HE HAS DENIED ANY ANGINA OR CHEST PRESSURE. FIRE IGNITION RISK HAS BEEN ASSESSED AND EDUCATION HAS BEEN PROVIDED.
[2023-04-11] MEDS ORDERED: HYDCOR20 PO (16:20)
[2023-04-11] MEDS ORDERED: CEFD300 PO (16:23)
--- NOTE | 2023-04-11 18:45 | NUR ---
DISCHARGE HOME PT A&O X4. BP SOFT, OTHERWISE VSS. PT DENYING LIGHTHEADEDNESS/DIZZINESS T/O SHIFT. MONITOR SHOWING AFIB, HR 90s-120s. PT HR ELEVATED W/ AMBULATION TO BATHROOM. PT REPORTING FEELING WELL & STATING "I CAN FIGHT THIS RESENDIZ AT HOME. PT FURTHER REPORTING READINESS TO DC HOME. MD HERNANDEZ TO BEDSIDE FOR DISCUSSION OF PT PLAN OF CARE. DR HERNANDEZ EXTENSIVELY GOING OVER PLAN OF CARE W/ PT. W/ ORDERS FOR DISCHARGE HOME. DISCHARGE INSTRUCTIONS REVIEWED W/ PT & PT . PT AGREEABLE. PIV REMOVED. PT TAKEN OUT IN WHEELCHAIR W/ BELONGINGS @ APPROX 1645.
== END 2023-04-11 16:35 | disposition home or self-care (01) | DRG 644 ==
LOC: ER 12:22 → PCU 12:23 → ICUE 12:23 → PCU 04-10 17:16
PROVIDERS: Emergency Medicine; Nurse Practitioner Acute Care; Student in an Organized Health Care Education/Training Program; ADMIT Internal Medicine
DX: C79.71 Secondary malignant neoplasm of right adrenal gland (principal); C34.90 Malignant neoplasm of unspecified part of unspecified bronchus or lung; N17.9 Acute kidney failure, unspecified; E27.40 Unspecified adrenocortical insufficiency; I50.22 Chronic systolic (congestive) heart failure; I48.20 Chronic atrial fibrillation, unspecified; Z66 Do not resuscitate; I95.9 Hypotension, unspecified; C79.72 Secondary malignant neoplasm of left adrenal gland; R82.71 Bacteriuria; N40.0 Benign prostatic hyperplasia without lower urinary tract symptoms; I25.10 Atherosclerotic heart disease of native coronary artery without angina pectoris; R77.8 Other specified abnormalities of plasma proteins; E78.5 Hyperlipidemia, unspecified; I49.3 Ventricular premature depolarization; I11.0 Hypertensive heart disease with heart failure; I73.9 Peripheral vascular disease, unspecified; Z98.890 Other specified postprocedural states; Z95.1 Presence of aortocoronary bypass graft; Z79.01 Long term (current) use of anticoagulants; Z79.899 Other long term (current) drug therapy; Z87.891 Personal history of nicotine dependence
CPT/HCPCS: 36415; 71045; 76770; 80048; 80053; 80069; 81001; 83880; 84484; 85025; 87086; 93005; 93010; 94762; 96374; 96376; 99285-25; A9270; G0378; J1720; J7030; J7050

== ENCOUNTER 2023-04-22 02:41 | Inpatient (IN) | payer OTHER ==
[2023-04-22] VITALS (45 sets, daily range): BP systolic 65–167; BP diastolic 37–106
[~2023-04-22] VITALS: Ht 170.2 cm; Wt 83.0 kg
[~2023-04-22 02:41] MED LIST changes: +CEFD300 PO; +ENTRESTO 24 MG1 EACH; +FOLI1 PO; +HYDCOR20 PO
[2023-04-22] MEDS ORDERED: ELIQUIS5 M3 PO (03:17)
[2023-04-22] MEDS ORDERED: Potassium Chlo20 ME1 PO (03:21)
[2023-04-22 03:24] LABS: BASOPHILS ABSOLUTE AUTO 0.04 K/mm3 (0.00-0.23); BASOPHILS PERCENT AUTO 0 % (0-2); EOSINOPHILS ABSOLUTE AUTO 0.48 K/mm3 (0.00-0.68); EOSINOPHILS PERCENT AUTO 4 % (0-6); Hematocrit 39.2 % (37.0-53.0); Hemoglobin 13.1 g/dL (13.5-17.5); IMMATURE GRAN ABSOLUTE AUTO 0.03 K/mm3 (0.00-0.10); IMMATURE GRAN PERCENT AUTO 0 % (0-1); LYMPHOCYTES ABSOLUTE AUTO 2.03 K/mm3 (0.84-5.20); LYMPHOCYTES PERCENT AUTO 18 % (21-46); MONOCYTES ABSOLUTE AUTO 0.92 K/mm3 (0.16-1.47); MONOCYTES PERCENT AUTO 8 % (4-13); Mean Corpuscular HGB Conc 33.4 g/dL (31.5-36.5); Mean Corpuscular Volume 90 fL (80-100); NEUTROPHILS ABSOLUTE AUTO 7.53 K/mm3 (1.96-9.15); NEUTROPHILS PERCENT AUTO 68 % (41-73); Platelet Count 159 K/mm3 (150-400); RDW Coefficient Variation 14.1 % (11.7-14.2); RDW Standard Deviation 46.5 fL (35.1-46.3); Red Blood Cell Count 4.37 M/mm3 (4.30-5.90); White Blood Cell Count 11.03 K/mm3 (4.00-11.30)
[2023-04-22] MEDS ORDERED: FURO40 PO (03:24)
[2023-04-22 03:37] LABS: Albumin, Blood 2.6 g/dL (3.4-5.0); Albumin/Globulin Ratio 0.7 (0.8-1.8); Bilirubin, Total 1.1 mg/dL (0.1-1.0); Bun/Creatinine Ratio 17.1 (12.0-20.0); Calcium, Blood 7.7 mg/dL (8.5-10.1); Creatinine, Blood 1.52 mg/dL (0.60-1.20); Globulin, Blood 3.5 g/dL (2.2-4.0); Potassium, Blood 3.6 mmol/L (3.5-5.5); Total Protein, Blood 6.1 g/dL (6.4-8.2)
[2023-04-22 04:05] LABS: Influenza A, PCR NEGATIVE (NEGATIVE); Influenza B, PCR NEGATIVE (NEGATIVE); Resp Syncytial Virus, PCR NEGATIVE (NEGATIVE); SARS-Cov-2 (COVID-19) PCR, MMC NEGATIVE (NEGATIVE)
[2023-04-22 05:19] LABS: Source, Urine Clean Catch
[2023-04-22 05:28] LABS: Appearance, Urine Clear (Clear); Bilirubin, Urine Neg (Neg); Blood, Urine 3+ (Neg); Color, Urine Yellow (P-Yellow); Glucose Qualitative, Urine Neg (Neg); Ketones, Urine 2+ (Neg); Leukocyte Esterase, Urine 2+ (Neg); Nitrite, Urine Neg (Neg); Protein, Urine 2+ (Neg); Urobilinogen, Urine NORM (Normal)
[2023-04-22 05:42] LABS: Bacteria Few /hpf; Squamous Epithelial Cells Not Seen /hpf (Few)
[2023-04-22] MEDS ORDERED: TRAM50 PO (06:52)
--- NOTE | 2023-04-22 07:16 | NUR ---
ARRIVAL TO ICU PT ARRIVED TO ICU 15 AT 0625 VIA ED BED AND TRANSFERED TO ICU BED VIA SLIDE SHEET. PT JOSSELIN AT BEDSIDE. HE IS SOMNULENT BUT WAKES TO VERBAL STIMULI; PLESENT AND ANSWERS QUESTIONS APPROPRIATLY. SPO2 >95% ON 5L NC. HR 90'S; AFIB NOTED. BP SOFT WITH SBP 70'S AND MAP HIGH 50'S. REPORT GIVEN TO JESSICA DWYER.
--- NOTE | 2023-04-22 18:33 | NUR ---
Shift summary. Pt slept for much of shift. Arouses easily, oriented to surroundings, event, person, place. On 02 via NC at 4 L/min. Pt up to bedside commode with one person standby assist. No acute events this shift. See chart for further details. Will report off to nightshift RN.
[2023-04-23] VITALS (7 sets, daily range): BP systolic 80–124; BP diastolic 53–106
[2023-04-23 03:55] LABS: Bun/Creatinine Ratio 17.8 (12.0-20.0); Calcium, Blood 7.7 mg/dL (8.5-10.1); Creatinine, Blood 1.29 mg/dL (0.60-1.20); Potassium, Blood 3.6 mmol/L (3.5-5.5)
--- NOTE | 2023-04-23 06:25 | NUR ---
AOX4. CHRONIC AFIB RATE 90-120. SYS BP 80-90'S WITH MAPS >65. 3L NC, THIS IS BASELINE PER PATIENT. PATIENT HAVING DIARRHEA, 4 BM'S OVERNIGHT. PT REPORTS THIS HAS BEEN GOING ON FOR 2 WEEKS. GI PANEL PENDING. PT UNABLE TO VOID. BLADDER SCANNED FOR 430ML, ST CATH FOR 400ML.
[2023-04-23 06:26] LABS: Adenovirus F 40/41 Not Detected (NOT DETECT); Astrovirus Not Detected (NOT DETECT); Campylobacter Sp Not Detected (NOT DETECT); Cryptosporidium Not Detected (NOT DETECT); Cyclospora Cayetanensis Not Detected (NOT DETECT); E. Coli O157 Not Detected (NOT DETECT); Entamoeba Histolytica Not Detected (NOT DETECT); Enteroaggregative E. coli-EAEC Not Detected (NOT DETECT); Enteropathogenic E. coli-EPEC Not Detected (NOT DETECT); Enterotoxigenic E. coli-ETEC Not Detected (NOT DETECT); Giardia Lamblia Not Detected (NOT DETECT); Norovirus GI/GII Not Detected (NOT DETECT); Plesiomonas Shigelloides Not Detected (NOT DETECT); Rotavirus A Not Detected (NOT DETECT); Salmonella Sp Not Detected (NOT DETECT); Sapovirus Not Detected (NOT DETECT); Shiga Toxin-prod E. coli-STEC Not Detected (NOT DETECT); Shigella/Enteroin E. coli-EIEC Not Detected (NOT DETECT); Vibrio Cholerae Not Detected (NOT DETECT); Vibrio Sp Not Detected (NOT DETECT); Yersinia Enterocolitica Not Detected (NOT DETECT)
--- NOTE | 2023-04-23 08:11 | NUR ---
CARE OF PT ASSUMED AT 0700. PT DENIES C/O, DENIES SOB WORSE THAN BASELINE. PT AWAKE AND OX3. SBA TO COMMODE W LIQUID STOOL. PT GIVEN FULL CHG BEDBATH. ATTENDS CHANGED. PT UNABLE TO URINATE. WILL CHECK A BLADDER SCAN IF PT UNABLE TO VOID AFTER FLOMAX GIVEN; DR MEYER AT BEDSIDE GIVEN FULL UPDATE. PT HYPOTENSIVE BUT STABLE W MAPS >65. PT TOLERATED BEING UP IN COMMODE. HR WOULD OCC REACH 150 THEN QUICKLY COME DOWN TO 110-120. PT IN AFIB. VANCO PO STARTED FOR CDIFF.
--- NOTE | 2023-04-23 15:48 | NUR ---
DR MEYER IN TO SEE PT. BP CHECKED, REMAINS LOW W MAP >65. 1L NS OVER 2HOURS ORDERED. PT'S AT BEDSIDE, GIVEN UPDATE.
--- NOTE | 2023-04-23 18:20 | NUR ---
Listened in yesterday on conversation with phsycian on prognosis, fluid blance and pt needs. had breif supportive visit with . had a long conversation with today she went to the cancer center and spoke with Dr. Foster GRE[employer] GROUNDS SUPERINTENDENT on pronosis and poor tolerance. they will see what they can come up with for a plan of care going forward. THey want to go to get a working up on his Gi system that was reccomended. Will continue to follow. They are of the thought that if he declines more they will stop any interventions.
--- NOTE | 2023-04-23 22:34 | NUR ---
ASSUMPTION OF CARE THIS RN ASSUMED CARE OF THIS PATIENT WHO TRANSFERRED FROM ICU 15 TO PCU 04. PATIENT ALERT AND ORIENTED X4. ABLE TO STAND AND TRANSFER WITH MINIMAL ASSISTANCE. LUNG SOUND CLEAR, ON ROOM AIR WHILE AWAKE AND 3 LITERS O2 FOR SLEEP WHICH IS HIS BASELINE. AFIB ON TELE. PATIENT HAS NO COMPLAINTS OF PAIN OR SHORTNESS OF BREATH. WILL CONTINUE TO MONITOR.
[2023-04-24] VITALS (9 sets, daily range): BP systolic 81–98; BP diastolic 55–71
--- NOTE | 2023-04-24 00:50 | NUR ---
PHYSICIAN COMMUNICATION CONTACTED PARALLEL COMPUTING SOFTWARE ENGINEER RESIDENT, DR SIMMONS, TO NOTIFY HIM THAT THE PATIENT HEART RATE HAS BEEN TOUCHING THE 130'S WHILE RESTING AND THE 180'S WHEN HE GOT UP TO THE RESTROOM, ASLO INFORMED HIM THAT THE PATIENT'S BLOOD PRESSURE WAS 88/[address] SIMMONS ORDERED FOR A ONE TIME DOSE OF 5 MG IV METOPROLOL FOR ELEVATED HEART RATE, STATING TO HOLD IF THE PATIENT'S SYSTOLIC BLOOD PRESSURE IS LESS THAN 80
[2023-04-24 04:43] LABS: Bun/Creatinine Ratio 15.3 (12.0-20.0); Calcium, Blood 7.5 mg/dL (8.5-10.1); Creatinine, Blood 1.24 mg/dL (0.60-1.20); Potassium, Blood 3.2 mmol/L (3.5-5.5)
--- NOTE | 2023-04-24 10:29 | NUR ---
AM NOTE: PT HRR STIL INCREASES TO 140-150'S WITH EXERTION 110 AT REST, PT DENIES CHEST PAIN/PRESSURE, SBP 80-90'S MAP >70'S, SATS ABOVE 95% ON RA, AFEBRILE. PT SBA FOR TRANSFERS. PT STARTED ON DIGOXIN PUSH AND METOPROLOL PO FOR HEART RATE. SBP NOW UP IN THE 116'S, HRR 100-120'S. HAD 4-5 TIMES LOOSE MUCOUSY BM THIS MORNING ALREADY PT ALSO STARTED C/O NAUSEA, ZOFRAN ORDERED. ALSO DR MEYER AWARE OF MULTIPLE EPISODES OF LOOSE BM DECLINES THE NEED FOR ANTIDIARRHEAL MEDS AT THSI TIME. PT HAS BEEN USING THE COMMODE FOR TOILETING. NO OTHER ISSUES REPORTED, REPORT GIVEN TO DAREK DWYER
--- NOTE | 2023-04-24 12:31 | NUR ---
NURSING PCU DAYSHIFT: Assumed care of pt at approx 1100. A/O, very pleasant, cooperative w/care. Tele in place, afib w/HR 100-130, no c/o CP/pressure, SBP 80-90's. Respiratory status stable w/O2 sat 90's on RA while awake, denies dyspnea. C/O abd cramping w/PO intake, continues to experience loose stools, administer PO vanco as ordered. Seen by PMD, orders reviewed. Pt denies any current questions/needs, plan of care discussed, telephone update provided to daughter. Resting comfortably at this time, warm blanket provided, call light in reach. Cont to monitor for changes.
--- NOTE | 2023-04-24 18:50 | NUR ---
NURSING PCU DAYSHIFT SUMMARY: No significant changes noted t/o the shift. HR 100-110, BP remains stable. S/O at bedside t/o majority of afternoon, plan of care discussed. Pt continues to have minimal appetite w/loose/mucousy stools, continuing PO vanco. Call placed to daughter, update provided. No s/s of acute distress at this time, pt resting comfortably in bed. Call light in reach, cont to monitor until rpt is given to NOC RN.
[2023-04-25] VITALS (7 sets, daily range): BP systolic 87–107; BP diastolic 55–72
[2023-04-25 04:59] LABS: Bun/Creatinine Ratio 12.4 (12.0-20.0); Calcium, Blood 7.4 mg/dL (8.5-10.1); Creatinine, Blood 0.97 mg/dL (0.60-1.20); Potassium, Blood 2.9 mmol/L (3.5-5.5)
--- NOTE | 2023-04-25 06:38 | NUR ---
SHIFT SUMMARY PATIENT ALERT AND ORIENTED X4. PATIENT DENIES CHEST PAIN AND SHORTNESS OF BREATH. ON ROOM AIR WHILE AWAKE AND 3 LITERS WHILE SLEEPING WHICH IS HIS BASELINE. BLOOD PRESSURE HYPOTENSIVE STILL WITH SBP IN 80'S AND 90'S, MAP ABOVE 65 AND ASYMPTOMATIC. AFIB ON TELE WITH RATE IN THE 90'S AT REST AND 120'S WITH ACTIVITY. NO ACUTE ISSUES NOTED OVERNIGHT. WILL CONTINUE TO MONITOR. CALL LIGHT WITHIN REACH.
--- NOTE | 2023-04-25 08:55 | NUR ---
AM ASSESSMENT: Pt up to BSC multiple times this am. Having frequent diarrhea r/t cdiff. HR shows afib, rate 90-130's with frequent PVC's. Will treat per orders. BP stable at this time. Will continue to monitor. Pt denies pain, SOB. States he is anxious to go home. Talked with patient about POC and medication changes and need to stay another day. Denies questions. Stable at this time. Call light in reach. Will continue to monitor.
[2023-04-25 10:15] LABS: Digoxin (Lanoxin) 0.47 ug/mL (0.80-2.00)
--- NOTE | 2023-04-25 18:01 | NUR ---
Shift Assessment: Pt resting in room. Has been up to BSC multiple times this shift to have BM's. HR has been 90-110 range for most of the day. BP has been soft but stable (map >65). Pt has denied dizziness, SOB or CP throughout the shift. NO other changes this shift. Will report to night RN.
[2023-04-26 04:20] LABS: Bun/Creatinine Ratio 12.6 (12.0-20.0); Calcium, Blood 7.8 mg/dL (8.5-10.1); Creatinine, Blood 1.03 mg/dL (0.60-1.20); Magnesium, Blood 2.1 mg/dL (1.6-2.4); Potassium, Blood 3.6 mmol/L (3.5-5.5)
[2023-04-26 05:21] VITALS: BP 99/71
--- NOTE | 2023-04-26 06:12 | NUR ---
SHIFT SUMMARY PT REMAINS ALERT AND ORIENTED. BP STABLE. HR HAS BEEN AFIB 90'S. PT HAS BEEN ON 3L NC WHILE SLEEPING WITH SATS REMAINING ABOVE 90%. PT UP TO THE COMMODE SEVERAL TIMES THROUGHOUT SHIFT TO HAVE LOOSE BM. PT DENIES ANY PAIN. WILL CONTINUE TO MONITOR AND REPORT TO ONCOMING RN
[2023-04-26 07:00] VITALS: BP 104/72
[2023-04-26 08:46] LABS: Digoxin (Lanoxin) 0.54 ug/mL (0.80-2.00)
[2023-04-26 11:18] VITALS: BP 97/70
--- NOTE | 2023-04-26 17:00 | NUR ---
SHIFT SUMMARY: PT ALERT AND ORIENTED X4, ABLE TO FOLLOW COMMANDS AND MAKE NEEDS KNOWN. BP SOFT MAP >65, HR AFIB 100'S, AFEBRILE, SPO2 >97% ON ROOM AIR. RESPIRATIONS EVEN AND UNLABORED. DENIES CP/PRESSURE. PULSES STRONG AND EQUAL THROUGHOUT. PT WITH MUTIPLE LOOSE STOOLS THROUGHOUT THE DAY. MD AWARE. PLAN FOR PT TO STAY ADDITIONAL NIGHT AND POSSIBLE D/C TOMORROW. NOW MED WITH TELE STATUS. PT IND TO AND FROM BATHROOM VIA FWW. AT BEDSIDE THIS EVENING, UPDATED ON PT PLAN OF CARE. BED IN LOW, CALL LIGHT IN REACH, WILL REPORT TO ONCOMING RN.
[2023-04-26 20:00] VITALS: BP 100/78
--- NOTE | 2023-04-26 20:47 | NUR ---
ASSUMPTION OF CARE NOTE THIS RN ASSUMED CARE OF PT AT 1914, REPORT FROM EMILY DWYER. PT AWAKE IN ROOM, WATCHING TV. A&O X4, PLEASANT AND COOPERATIVE WITH CARE. VSS; BP 100/78 WITH MAP OF 84, AFEBRILE, SPO2 98% ON RA, RR 17, HRR AFIB AT 88. PT DENIES CP OR PRESSURE, DENIES SOB. PT REPORTS "FEELING BETTER" BUT STILL "A LITTLE WEAK". CONTINUES TO REPORT DIARRHEA. NO ISSUES VOIDING. DENIES GENERAL PAIN. PT DOES NOT EXPRESS ANY CONCERNS, QUESTIONS OR NEEDS AT THIS TIME PT TRANSFERRED TO MEDICAL FLOOR AT 2044 VIA WHEELCHAIR BY IT INTEGRATION ARCHITECT. PT BELONGINGS SENT WITH PT. PT ON RA AT TIME OF TRANSFER. REPORT TO YULIYA BLANDON. JOSSELIN INFORMED OF TRANSFER BY THIS RN.
[2023-04-27 04:42] VITALS: BP 100/65
--- NOTE | 2023-04-27 04:43 | NUR ---
SHIFT SUMMARY REPORT RECEIVED FROM PCU, A/O VSS, ON CONTACT PRECAUSIONS. PT VERY PLEASENT UNDERSTANDS THE NEED TO BE EXTRA CAREFUL WHEN STANDING AND AMB TO REST ROOM, CALLS AND MAKE NEEDS KNOWN.
[2023-04-27 06:23] LABS: Bun/Creatinine Ratio 13.5 (12.0-20.0); Calcium, Blood 7.9 mg/dL (8.5-10.1); Creatinine, Blood 1.11 mg/dL (0.60-1.20); Potassium, Blood 3.8 mmol/L (3.5-5.5)
[2023-04-27 07:54] VITALS: BP 107/77
[2023-04-27 15:35] VITALS: BP 102/75
--- NOTE | 2023-04-27 18:40 | NUR ---
SHIFT SUMMARY: ALESIA IS A&OX4. VSS, NO ACUTE EVENTS THIS SHIFT. HE DENIES ANY COMPLAINTS AND REPORTS FEELING SIGNIFICANTLY BETTER THAN AT ADMIT. HE IS TOLERATING PO INTAKE WELL AND IS A ONE-PERSON ASSIST TO THE BATHROOM WITH THE FWW. HE STATES THAT A FRIEND HAS DELIVERED A WALKER TO HIS HOME AND HE PLANS TO SLEEP DOWNSTAIRS ON AN AIR MATRESS WHEN HE DISCHARGES HOME. PT RECOMMENDED OUTPATIENT THERAPY, DISCUSSED WITH PT'S . IV TO RIGHT WRIST PATENT. PT IS LYING IN BED WITH THE CALL LIGHT IN REACH. WCTM UNTIL REPORT IS GIVEN TO MEDICAL/SURGERY REGISTERED NURSE RN.
--- NOTE | 2023-04-28 04:43 | NUR ---
SHIFT SUMMARY A/O VSS PT FEELING MUCH BETTER HOPING TO GO HOME THIS AM, NO DIARRHEA BP STABLE PT COMFORTABLE IN BED.
[2023-04-28 04:59] LABS: BASOPHILS ABSOLUTE AUTO 0.06 K/mm3 (0.00-0.23); BASOPHILS PERCENT AUTO 1 % (0-2); EOSINOPHILS ABSOLUTE AUTO 0.23 K/mm3 (0.00-0.68); EOSINOPHILS PERCENT AUTO 2 % (0-6); Hematocrit 39.9 % (37.0-53.0); IMMATURE GRAN ABSOLUTE AUTO 0.07 K/mm3 (0.00-0.10); IMMATURE GRAN PERCENT AUTO 1 % (0-1); LYMPHOCYTES ABSOLUTE AUTO 2.29 K/mm3 (0.84-5.20); LYMPHOCYTES PERCENT AUTO 23 % (21-46); MONOCYTES ABSOLUTE AUTO 0.69 K/mm3 (0.16-1.47); MONOCYTES PERCENT AUTO 7 % (4-13); Mean Corpuscular HGB 29.5 pg (26.0-34.0); Mean Corpuscular HGB Conc 32.6 g/dL (31.5-36.5); Mean Corpuscular Volume 91 fL (80-100); Mean Platelet Volume 12.6 fL (9.1-12.4); NEUTROPHILS PERCENT AUTO 66 % (41-73); Platelet Count 219 K/mm3 (150-400); RDW Coefficient Variation 14.1 % (11.7-14.2); RDW Standard Deviation 47.4 fL (35.1-46.3); White Blood Cell Count 9.84 K/mm3 (4.00-11.30)
[2023-04-28 05:43] LABS: Albumin, Blood 2.2 g/dL (3.4-5.0); Albumin/Globulin Ratio 0.7 (0.8-1.8); Bilirubin, Total 0.2 mg/dL (0.1-1.0); Bun/Creatinine Ratio 12.1 (12.0-20.0); Creatinine, Blood 1.07 mg/dL (0.60-1.20); Potassium, Blood 3.4 mmol/L (3.5-5.5); Total Protein, Blood 5.2 g/dL (6.4-8.2)
[2023-04-28 08:33] VITALS: BP 111/68
[2023-04-28] MEDS ORDERED: FURO20 PO (11:17)
[2023-04-28] MEDS ORDERED: VANCOCIN HCL125 MG PO (11:17)
[2023-04-28] MEDS ORDERED: DIGOX125 MC1 PO (11:17)
[2023-04-28] MEDS ORDERED: METO25ER PO (11:18)
[2023-04-28] MEDS ORDERED: LACT PO (11:18)
--- NOTE | 2023-04-28 11:50 | NUR ---
DISCHARGE NOTE PT DISCHARGED HOME AT APPROX 11:40. PT AND PROVIDED W/ WRITTEN AND VERBAL INSTRUCTIONS AND REPORTED UNDERSTANDING. PT A&OX4, VSS, TOLERATING PO, VOIDING, AMB INDEPENDENTLY, AND DENIED PAIN. BELONGINGS WERE RETURNED, PT AND ESCOURTED OUT BY YULIYA HUTSON VIA W/C.
== END 2023-04-28 11:45 | disposition home or self-care (01) | DRG 371 ==
LOC: ER 02:41 → ICUE 05:58 → PCU 05:58 → MEDS 05:58 → ICUE 06:23 → PCU 04-23 22:10 → MEDS 04-26 20:46
PROVIDERS: Emergency Medicine; Hospitalist; Internal Medicine; ADMIT Internal Medicine
DX: A04.72 Enterocolitis due to Clostridium difficile, not specified as recurrent (principal); I21.A1 Myocardial infarction type 2; E27.40 Unspecified adrenocortical insufficiency; I50.22 Chronic systolic (congestive) heart failure; N39.0 Urinary tract infection, site not specified; I48.20 Chronic atrial fibrillation, unspecified; N17.9 Acute kidney failure, unspecified; J96.11 Chronic respiratory failure with hypoxia; C34.90 Malignant neoplasm of unspecified part of unspecified bronchus or lung; C79.72 Secondary malignant neoplasm of left adrenal gland; C79.71 Secondary malignant neoplasm of right adrenal gland; I95.89 Other hypotension; I11.0 Hypertensive heart disease with heart failure; I25.10 Atherosclerotic heart disease of native coronary artery without angina pectoris; Z66 Do not resuscitate; R77.8 Other specified abnormalities of plasma proteins; E78.5 Hyperlipidemia, unspecified; Z20.822 Contact with and (suspected) exposure to COVID-19; R33.9 Retention of urine, unspecified; E87.6 Hypokalemia; T45.1X5A Adverse effect of antineoplastic and immunosuppressive drugs, initial encounter; E86.0 Dehydration; I73.9 Peripheral vascular disease, unspecified; Z95.1 Presence of aortocoronary bypass graft; Z92.21 Personal history of antineoplastic chemotherapy; Z98.890 Other specified postprocedural states; Z87.891 Personal history of nicotine dependence; Z99.81 Dependence on supplemental oxygen
CPT/HCPCS: 0241U; 36415; 51702; 71045; 80048; 80053; 80162; 81001; 82533; 83605; 83735; 84484; 85025; 87086; 87324; 87507; 93005; 93010; 94760; 94762; 96361-59; 96374-59; 96376-59; 97110; 97162; 97530; 99285-25; A9270; J1160; J1720; J7030; Q0177

== ENCOUNTER 2023-05-10 10:05 | Inpatient (IN) | payer OTHER ==
[~2023-05-10] VITALS: Ht 175.3 cm; Wt 78.5 kg
[~2023-05-10 10:05] MED LIST changes: +DIGOX125 MC1 PO; +ELIQUIS5 M3 PO; +LACT PO; +METO25ER PO; +POTCHL20ER PO; +PRAVASTATIN SOD40 MG PO; +VANCOCIN HCL125 MG PO
[2023-05-10 10:56] LABS: BASOPHILS PERCENT AUTO 1 % (0-2); EOSINOPHILS ABSOLUTE AUTO 0.31 K/mm3 (0.00-0.68); EOSINOPHILS PERCENT AUTO 3 % (0-6); Hematocrit 39.7 % (37.0-53.0); Hemoglobin 12.9 g/dL (13.5-17.5); IMMATURE GRAN ABSOLUTE AUTO 0.03 K/mm3 (0.00-0.10); IMMATURE GRAN PERCENT AUTO 0 % (0-1); LYMPHOCYTES ABSOLUTE AUTO 1.19 K/mm3 (0.84-5.20); LYMPHOCYTES PERCENT AUTO 11 % (21-46); MONOCYTES PERCENT AUTO 6 % (4-13); Mean Corpuscular HGB 29.5 pg (26.0-34.0); Mean Corpuscular HGB Conc 32.5 g/dL (31.5-36.5); Mean Corpuscular Volume 91 fL (80-100); NEUTROPHILS ABSOLUTE AUTO 8.69 K/mm3 (1.96-9.15); NEUTROPHILS PERCENT AUTO 80 % (41-73); Platelet Count 261 K/mm3 (150-400); RDW Coefficient Variation 14.3 % (11.7-14.2); RDW Standard Deviation 47.6 fL (35.1-46.3); Red Blood Cell Count 4.38 M/mm3 (4.30-5.90); White Blood Cell Count 10.92 K/mm3 (4.00-11.30)
[2023-05-10 11:30] LABS: Albumin, Blood 3.2 g/dL (3.4-5.0); Albumin/Globulin Ratio 0.9 (0.8-1.8); Bilirubin, Total 0.9 mg/dL (0.1-1.0); Calcium, Blood 8.5 mg/dL (8.5-10.1); Globulin, Blood 3.5 g/dL (2.2-4.0); Magnesium, Blood 1.9 mg/dL (1.6-2.4); Total Protein, Blood 6.7 g/dL (6.4-8.2)
[2023-05-10 15:50] VITALS: BP 121/82
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
[2023-05-10 17:02] VITALS: BP 121/82
[2023-05-10 19:36] VITALS: BP 111/79
[2023-05-10 23:40] VITALS: BP 117/71
[2023-05-11 03:29] LABS: Hematocrit 37.9 % (37.0-53.0); Hemoglobin 12.6 g/dL (13.5-17.5); Mean Corpuscular HGB 29.8 pg (26.0-34.0); Mean Corpuscular HGB Conc 33.2 g/dL (31.5-36.5); Mean Corpuscular Volume 90 fL (80-100); Mean Platelet Volume 12.8 fL (9.1-12.4); Platelet Count 197 K/mm3 (150-400); RDW Coefficient Variation 14.6 % (11.7-14.2); RDW Standard Deviation 47.3 fL (35.1-46.3); Red Blood Cell Count 4.23 M/mm3 (4.30-5.90); White Blood Cell Count 10.12 K/mm3 (4.00-11.30)
[2023-05-11 04:03] LABS: Bun/Creatinine Ratio 10.6 (12.0-20.0); Calcium, Blood 7.6 mg/dL (8.5-10.1); Creatinine, Blood 0.95 mg/dL (0.60-1.20)
--- NOTE | 2023-05-11 04:35 | NUR ---
SHIFT SUMMARY PT A&O X4. ABLE TO MAKE NEEDS KNOWN. SBA WHILE AMBULATING TO BATHROOM. SR WITH PVC'S, HR 80'S. ONE EPISODE OF 9 BEAT RUN OF VTACH. PT DENIED SYMPTOMS AND VITALS REMAINED STABLE. ON 3L VIA NC WHILE SLEEPING WITH SPO2 >92%. DENIES CHEST PAIN/PRESSURE. ROBLEDO CATHETER DRAINING TO GRAVITY; URINE WAS RED TINGED EARLIER IN THE SHIFT BUT HAS NOW TURNED YELLOW. PT CONTINUES TO HAVE LOOSE STOOLS, STATING THAT NOW THEY ARE "YELLOW AND WATERY". PT REMAINS IN CDIFF ISOLATION PRECAUTIONS. BED IN LOWEST POSITION AND CALL LIGHT WITHIN REACH. THIS RN WILL REPORT TO ONCOMING DAYSHIFT RN.
--- NOTE | 2023-05-11 04:50 | NUR ---
UPDATE MD ISABEL NOTIFIED OF CRITICAL TROPONIN THAT INCREASED FROM PREVIOUS. ORDER TO REPEAT TROPONIN 4HRS AFTER PREVIOUS DRAW. MD ISABEL NOTIFIED THAT POTASSIUM REMAINS 3.0; ORDER FOR 60MEQ PO POTASSIUM NOW. WITH ORDER TO CHECK MAGNESIUM LEVEL THIS AM; ORDER PLACED AND AWAITING RESULT. NO OTHER CHANGES TO PATIENT STATUS SINCE PREVIOUS NOTE.
[2023-05-11 05:06] LABS: Magnesium, Blood 1.9 mg/dL (1.6-2.4)
[2023-05-11 07:40] VITALS: BP 104/77
[2023-05-11 10:23] LABS: Magnesium, Blood 1.9 mg/dL (1.6-2.4); Phosphorus, Blood 2.8 mg/dL (2.5-4.9)
[2023-05-11 11:23] VITALS: BP 106/67
[2023-05-11 15:06] VITALS: BP 97/56
--- NOTE | 2023-05-11 17:25 | NUR ---
SHIFT SUMMARY: PT REMAINS ALERT AND ORIENTED X4, ABLE TO FOLLOW COMMANDS AND MAKE NEEDS KNOWN. BP STABLE, HR 80-80'S, AFEBRILE, SPO2 >98% ON 3L NC. LUNG SOUNDS WITH WHEEZE IN BASES THIS AM, DIURETIC GIVEN WITH GOOD RELIEF. PT STATES BREATHING IMPORVED. PT WITH LOAN YELLOW, APPROX 1500ML OF OUTPUT THIS SHIFT. PT WITH MUTIPLE LOOSE STOOLS/GAS. ECHO COMPLETED. CARDIOLOGY CONSULTED, IN TO SEE PT THIS AFTERNOON, MEDS ADJUSTED, SEE EMAR. AT BEDSIDE THROUGHOUT THE DAY AND UPDATED ON PT CARE FREQUENTLY. PT IND TO AND FROM BATHROOM. BED IN LOW, CALL LIGHT IN REACH, WILL REPORT TO ONCOMING RN.
[2023-05-11 20:27] VITALS: BP 92/62
[2023-05-11 23:35] VITALS: BP 96/60
[2023-05-12] VITALS (8 sets, daily range): BP systolic 88–128; BP diastolic 60–82
[2023-05-12 04:36] LABS: BASOPHILS ABSOLUTE AUTO 0.08 K/mm3 (0.00-0.23); BASOPHILS PERCENT AUTO 1 % (0-2); EOSINOPHILS ABSOLUTE AUTO 0.36 K/mm3 (0.00-0.68); EOSINOPHILS PERCENT AUTO 4 % (0-6); Hematocrit 37.6 % (37.0-53.0); Hemoglobin 12.3 g/dL (13.5-17.5); IMMATURE GRAN ABSOLUTE AUTO 0.03 K/mm3 (0.00-0.10); IMMATURE GRAN PERCENT AUTO 0 % (0-1); LYMPHOCYTES ABSOLUTE AUTO 2.26 K/mm3 (0.84-5.20); LYMPHOCYTES PERCENT AUTO 24 % (21-46); MONOCYTES PERCENT AUTO 7 % (4-13); Mean Corpuscular HGB 29.3 pg (26.0-34.0); Mean Corpuscular HGB Conc 32.7 g/dL (31.5-36.5); Mean Corpuscular Volume 90 fL (80-100); NEUTROPHILS ABSOLUTE AUTO 6.14 K/mm3 (1.96-9.15); NEUTROPHILS PERCENT AUTO 64 % (41-73); Platelet Count 185 K/mm3 (150-400); RDW Coefficient Variation 14.6 % (11.7-14.2); RDW Standard Deviation 47.4 fL (35.1-46.3); White Blood Cell Count 9.57 K/mm3 (4.00-11.30)
[2023-05-12 04:54] LABS: Albumin, Blood 2.5 g/dL (3.4-5.0); Anion Gap 5 mmol/L (6-16); Blood Urea Nitrogen 10 mg/dL (8-24); Bun/Creatinine Ratio 10.8 (12.0-20.0); CO2, Blood 29 mmol/L (21-32); Calcium, Blood 7.8 mg/dL (8.5-10.1); Chloride, Blood 111 mmol/L (98-108); Creatinine, Blood 0.93 mg/dL (0.60-1.20); Glomerular Filtration Rate 87 (60-); Glucose, Blood 93 mg/dL (70-99); Phosphorus, Blood 2.8 mg/dL (2.5-4.9); Sodium, Blood 145 mmol/L (136-145)
--- NOTE | 2023-05-12 04:58 | NUR ---
SHIFT SUMMARY NO ACUTE CHANGES OVERNIGHT. PT A&O X4. [place]. ABLE TO MAKE NEEDS KNOWN. INDEPENDENT TO BATHROOM. PT WITH X2 LOOSE BM'S OVERNIGHT. VITALS STABLE. NO CHANGES TO TELE. BP STABLE WITH SBP 90-100'S. ON 3L VIA NC. DENIES CHEST PAIN/PRESSURE. BED IN LOWEST POSITION AND CALL LIGHT WITHIN REACH. THIS RN WILL REPORT TO ONCOMING DAYSHIFT RN.
--- NOTE | 2023-05-12 16:53 | NUR ---
END OF SHIFT NOTE: NO ACUTE EVENTS THIS SHIFT. PT A&OX4, ABLE TO CALL APPROPRIATELY AND MAKE NEEDS KNOWN TO STAFF. HR 70-80'S, NSR. SBP 90-100'S W/ SCHEDULED MIDODRINE PER EMAR. DENIES CHEST PAIN/PRESSURE. SPO2 >92% ON RA, PT DENIES SOB. FREQUENT LOOSE BM'S W/ FLATUS, MEDICATED PER EMAR. CDIFF PRECAUTIONS IN PLACE. ROBLEDO CATH REMOVED THIS AM PER ORDERS. PT REPORTED BLADDER FULLNESS AND INABILITY TO URINATE; BLADDER SCAN W/ >500ML. STRAIGHT CATH PERFORMED, YELLOW URINE W/ SMALL BLOOD CLOTS PRESENT. TOLERATING DIET WELL. PT ABLE TO INDEPENDENTLY REPOSITION AND AMBULATE TO BATHROOM. CALL LIGHT WITHIN REACH, BED IN LOWEST POSITION. WILL REPORT TO ONCOMING ELBA RN.
--- NOTE | 2023-05-12 17:13 | NUR ---
PHYSICIAN CONTACT: PT REPORTS FEELINGS OF BLADDER FULLNESS AND INABILITY TO VOID THIS AFTERNOON. BLADDER SCAN SHOWS 348ML. CALL PLACED TO MD AMBROCIO W/ UPDATE ON URINARY RETENTION. W/ ORDERS TO GIVE 1800 DOSE OF LASIX AT THIS TIME, ATTEMPT TO HAVE PT VOID AFTER. IF UNABLE TO VOID, PROCEED W/ STRAIGHT CATH AND CONTINUE TO MONITOR. STATES IF 3RD STRAIGHT CATH IS NECESSARY, PLACE ROBLEDO TO PREVENT TRAUMA FROM REPEATED CATHS.
--- NOTE | 2023-05-12 20:30 | NUR ---
UPDATE PATIENT NOTIFIED THIS RN OF MODERATE ABDOMINAL AND BLADDER PAIN. PATIENT STATING THAT HE NEEDED CATHED IMMEDIATELY. THIS RN BLADDER SCANNED PATIENT, 363 IN BLADDER. PER DAY SHIFT RN, PATIENT WAS TO HAVE ROBLEDO PLACED ON NEXT STRAIGHT CATH OCCOURENCE D/T MULTIPLE INSERTIONS AND TRAUMA TO URETHRA. NO NURSE NOTIFY OR ORDER PLACED BY PREVIOUS RN. THIS RN CALLED HOSPITALIST DR. DEL RIO, ORDER RECEIVED FOR ROBLEDO CATH. ROBLEDO INSERTED, PATIENT TOLERATED WELL, UA SENT.
[2023-05-12 20:59] LABS: Source, Urine Foley catheter
[2023-05-12 21:05] LABS: Bilirubin, Urine Neg (Neg); Blood, Urine 1+ (Neg); Glucose Qualitative, Urine 4+ (Neg); Ketones, Urine Neg (Neg); Leukocyte Esterase, Urine Neg (Neg); Nitrite, Urine Neg (Neg); Protein, Urine Neg (Neg); Specific Gravity, Urine 1.005 (1.003-1.022); Urobilinogen, Urine NORM (Normal)
[2023-05-12 21:06] LABS: Appearance, Urine Clear (Clear); Color, Urine Pale Yellow (P-Yellow)
[2023-05-12 21:15] LABS: Bacteria Few /hpf; Squamous Epithelial Cells Rare /hpf (Few); White Blood Cells, Urine 0-2 /hpf (0-5)
[2023-05-13 03:57] LABS: Albumin, Blood 2.5 g/dL (3.4-5.0); Anion Gap 7 mmol/L (6-16); Blood Urea Nitrogen 8 mg/dL (8-24); Bun/Creatinine Ratio 7.8 (12.0-20.0); CO2, Blood 27 mmol/L (21-32); Calcium, Blood 7.7 mg/dL (8.5-10.1); Chloride, Blood 109 mmol/L (98-108); Creatinine, Blood 1.03 mg/dL (0.60-1.20); Glomerular Filtration Rate 77 (60-); Glucose, Blood 91 mg/dL (70-99); Magnesium, Blood 1.9 mg/dL (1.6-2.4); Phosphorus, Blood 2.9 mg/dL (2.5-4.9); Potassium, Blood 2.9 mmol/L (3.5-5.5); Sodium, Blood 143 mmol/L (136-145)
[2023-05-13 04:57] VITALS: BP 96/58
--- NOTE | 2023-05-13 06:27 | NUR ---
SHIFT SUMMARY PATIENT ALERT AND ORIENTED, ABLE TO MAKE NEEDS KNOWN TO STAFF. SOFT BPs, BASELINE FOR PATIENT, RECEIVING SCHEDULED MIDODRINE, MAP >65. TELE READING AFIB 80-110s DURING THE NIGHT, DENIED CHEST PAIN. PATIENT WEARING 3L NC WHILE SLEEPING D/T DESATTING INTO LOW 80s, TOLERATING RA WHILE AWAKE. ROBLEDO INSERTED THIS SHIFT, SEE PREVIOUS NOTE, DRAINING YELLOW URINE TO GRAVITY. PATIENT INDEPENDENT TO THE BATHROOM WITH 1 EPISODE OF DIARRHEA OVERNIGHT. NO OTHER CHANGES THIS SHIFT, WILL REPORT TO DAY SHIFT RN.
[2023-05-13 07:08] VITALS: BP 104/61
[2023-05-13 11:08] VITALS: BP 100/60
[2023-05-13] MEDS ORDERED: BANATROL PLUS1 EAC1 PO (13:08)
[2023-05-13] MEDS ORDERED: Amiodarone HCl200 MG PO (13:08)
[2023-05-13] MEDS ORDERED: JARDIANCE10 MG PO (13:09)
--- NOTE | 2023-05-13 14:37 | NUR ---
DISCHARGE NOTE PT DISCHARGED FROM [facility] AT 1435. DISCHARGE INSTRUCTIONS AND EDUCATION REVIEWED WITH PT AND SPOUSE; BOTH VOICED UNDERSTANDING OF THIS INFORMATION. PT ABLE TO INDEPENDENTLY GET DRESSED. IV CATHETERS AND TELEMETRY REMOVED BY THIS RN W/O DIFFICULTY. VSS, NO CHANGES ON TELE PRIOR TO REMOVAL. PT DENIES CHEST PAIN AND SOB. NO CONCERNS AT TIME OF DISCHARGE. PT WAS WHEELED TO PRIVATE VEHICLE BY STAFF, NO DIFFICULTY WITH TRANSFER.
== END 2023-05-13 14:33 | disposition home or self-care (01) | DRG 280 ==
LOC: ER 10:05 → PCU 10:06
PROVIDERS: Physician Assistant; Student in an Organized Health Care Education/Training Program; ADMIT Internal Medicine
PROC: B24BYZZ Ultrasonography of Heart with Aorta using Other Contrast (ICD-10-PCS; principal; 2023-05-11)
DX: I47.20 Ventricular tachycardia, unspecified (principal); I50.23 Acute on chronic systolic (congestive) heart failure; I21.A1 Myocardial infarction type 2; N13.8 Other obstructive and reflux uropathy; E27.49 Other adrenocortical insufficiency; C34.90 Malignant neoplasm of unspecified part of unspecified bronchus or lung; C79.72 Secondary malignant neoplasm of left adrenal gland; C79.71 Secondary malignant neoplasm of right adrenal gland; Z66 Do not resuscitate; I95.89 Other hypotension; E87.6 Hypokalemia; T50.2X5A Adverse effect of carbonic-anhydrase inhibitors, benzothiadiazides and other diuretics, initial encounter; E86.1 Hypovolemia; I25.10 Atherosclerotic heart disease of native coronary artery without angina pectoris; N40.1 Benign prostatic hyperplasia with lower urinary tract symptoms; R33.8 Other retention of urine; E78.5 Hyperlipidemia, unspecified; I73.9 Peripheral vascular disease, unspecified; I11.0 Hypertensive heart disease with heart failure; I25.5 Ischemic cardiomyopathy; J44.9 Chronic obstructive pulmonary disease, unspecified; G47.33 Obstructive sleep apnea (adult) (pediatric); I48.20 Chronic atrial fibrillation, unspecified; Z79.01 Long term (current) use of anticoagulants; Z95.1 Presence of aortocoronary bypass graft; Z95.810 Presence of automatic (implantable) cardiac defibrillator; Z87.891 Personal history of nicotine dependence
CPT/HCPCS: 36415; 51702; 71046; 80048; 80053; 80069; 81001; 83735; 83880; 84100; 84484; 85025; 85027; 93005; 93010; 96365-59; 96366-59; 96368; 96375-59; 96376; 99285-25; A9270; C8929; G0378; J1940; J3475; J3480; J7030; J7050; Q9957

== ENCOUNTER 2023-05-20 03:14 | Inpatient (IN) | payer OTHER ==
[~2023-05-20] VITALS: Ht 175.3 cm; Wt 77.0 kg
[2023-05-20] VITALS (67 sets, daily range): BP systolic 67–112; BP diastolic 32–96
[~2023-05-20 03:14] MED LIST changes: +Amiodarone HCl200 MG PO; +BANATROL PLUS1 EAC1 PO; +JARDIANCE10 MG PO
[2023-05-20 03:38] LABS: BASOPHILS ABSOLUTE AUTO 0.07 K/mm3 (0.00-0.23); BASOPHILS PERCENT AUTO 0 % (0-2); EOSINOPHILS ABSOLUTE AUTO 0.73 K/mm3 (0.00-0.68); EOSINOPHILS PERCENT AUTO 5 % (0-6); Hemoglobin 13.4 g/dL (13.5-17.5); IMMATURE GRAN ABSOLUTE AUTO 0.06 K/mm3 (0.00-0.10); IMMATURE GRAN PERCENT AUTO 0 % (0-1); LYMPHOCYTES ABSOLUTE AUTO 2.19 K/mm3 (0.84-5.20); LYMPHOCYTES PERCENT AUTO 14 % (21-46); MONOCYTES ABSOLUTE AUTO 0.71 K/mm3 (0.16-1.47); MONOCYTES PERCENT AUTO 5 % (4-13); Mean Corpuscular HGB 29.7 pg (26.0-34.0); Mean Corpuscular HGB Conc 33.5 g/dL (31.5-36.5); Mean Corpuscular Volume 89 fL (80-100); NEUTROPHILS ABSOLUTE AUTO 12.14 K/mm3 (1.96-9.15); NEUTROPHILS PERCENT AUTO 76 % (41-73); Platelet Count 283 K/mm3 (150-400); RDW Coefficient Variation 14.2 % (11.7-14.2); Red Blood Cell Count 4.51 M/mm3 (4.30-5.90)
[2023-05-20 03:51] LABS: Bun/Creatinine Ratio 8.9 (12.0-20.0); Calcium, Blood 8.2 mg/dL (8.5-10.1); Creatinine, Blood 1.24 mg/dL (0.60-1.20); Magnesium, Blood 1.8 mg/dL (1.6-2.4); Potassium, Blood 3.1 mmol/L (3.5-5.5)
--- NOTE | 2023-05-20 06:49 | NUR ---
ARRIVAL TO ICU: PT ARRIVED TO ICU VIA [facility] AT 0622. RECEIVED REPORT FROM WINSOME DWYER. SLID PT TO ICU BED FROM [facility]. NO BELONGINGS WITH PT. ALERT AND ORIENTED TO TIME, PERSON, PLACE AND SITUATION. ABLE TO ANSWER QUESTIONS AND MAKE NEEDS KNOWN. LUNG SOUNDS CLEAR. 3L O2 VIA NASAL CANNULA WITH SATS >95%. CARDIAC MONITORING IN PLACE, ST/AFIB WITH RATE 130'S. SBP 90'S. DENIES CHEST PAIN OR PRESSURE. AMIO INFUSING AT 1. TWO PIVS IN PLACE, LEFT AC AND RIGHT AC 20 G. PT HAS C/O PAIN IN UPPER ARMS HE BELIEVES IS RELATED TO HIS FALL AT HOME. NO SKIN ISSUES. ATTENDS IN PLACE HAS NOT VOIDED YET.
--- NOTE | 2023-05-20 08:00 | NUR ---
ASSUMPTION OF CARE BEDSIDE SHIFT REPORT RECEIVED FROM ELBA RN. PT RESTING IN BED, ALERT AND ORIENTED X 4. PT ABLE TO ASNWER QUESTIONS, FOLLOW COMMANDS AND MAKE HIS NEEDS KNOWN. HR 100-140'S A FIB, AMIODARONE INFUSING AT 1MG/MIN, MAP >65. LUNG SOUNDS CLEAR, PT ON 1LPM VIA NC. ABDOMEN SOFT NONTENDER. PIV TO LAC AND RAC INFUSING. PT HAD TEMPERATURE OF 101.2, MEDICATED WITH TYLENOL. UPON FURTHER ASSESSMENT AROUND 1000, HR 80-100'S SINUS, MAP 40-60'S LEVOPHED STARTED AT 4MCG/MIN, TITRATED UP TO 8MCG/MIN TO MAINTAIN MAP >65. TMAX OF 102, FEVER BROKE AND TEMPERATURE IS NOW 98. PT HAS HAD MULTIPLE WATERY LOOSE STOOLS THIS SHIFT, SENT FOR GI PANEL. DR. MEYER UPDATED ON PATIENT CONDITION.
[2023-05-20 10:31] LABS: Anion Gap 10 mmol/L (6-16); Blood Urea Nitrogen 10 mg/dL (8-24); CO2, Blood 22 mmol/L (21-32); Calcium, Blood 7.1 mg/dL (8.5-10.1); Chloride, Blood 104 mmol/L (98-108); Glomerular Filtration Rate 80 (60-); Glucose, Blood 96 mg/dL (70-99); Phosphorus, Blood 1.7 mg/dL (2.5-4.9); Potassium, Blood 2.9 mmol/L (3.5-5.5); Sodium, Blood 136 mmol/L (136-145)
--- NOTE | 2023-05-20 12:26 | NUR ---
CASE CONFERENCE: Spoke to pt's Debbie by phone this am. She states she is "exhausted", and is waiting for pt's daughter to arrive from [place] either driving or by plane; she hasn't decided yet. Bedside RN states concern that pt is currently on 8mcg Levofed with a soft BP. If BP drops or map changes, pt would likely need increase in levofed. Anything above 8mcs must be given via picc line, which is more invasive. Debbie requests we try and wait until daughter arrives before any further invasive care performed, but verbalizes understanding she may need to make that decision of the PICC line sooner. Pt's code status is DNR according to pt's this morning. Received order from Dr. Marti to change it after reconfirming with pt's . Paliative Care will remain available.
[2023-05-20 13:47] LABS: Campylobacter Sp Not Detected (NOT DETECT); Enteroaggregative E. coli-EAEC Not Detected (NOT DETECT); Plesiomonas Shigelloides Not Detected (NOT DETECT); Salmonella Sp Not Detected (NOT DETECT); Vibrio Cholerae Not Detected (NOT DETECT); Vibrio Sp Not Detected (NOT DETECT); Yersinia Enterocolitica Not Detected (NOT DETECT)
[2023-05-20 13:48] LABS: Adenovirus F 40/41 Not Detected (NOT DETECT); Astrovirus Not Detected (NOT DETECT); Cryptosporidium Not Detected (NOT DETECT); Cyclospora Cayetanensis Not Detected (NOT DETECT); E. Coli O157 Not Detected (NOT DETECT); Entamoeba Histolytica Not Detected (NOT DETECT); Enteropathogenic E. coli-EPEC Not Detected (NOT DETECT); Enterotoxigenic E. coli-ETEC Not Detected (NOT DETECT); Giardia Lamblia Not Detected (NOT DETECT); Norovirus GI/GII Not Detected (NOT DETECT); Rotavirus A Not Detected (NOT DETECT); Sapovirus Not Detected (NOT DETECT); Shiga Toxin-prod E. coli-STEC Not Detected (NOT DETECT); Shigella/Enteroin E. coli-EIEC Not Detected (NOT DETECT)
--- NOTE | 2023-05-20 17:53 | NUR ---
SHIFT SUMMARY PT RESTING IN BED, ALERT AND ORIENTED X4, PT ABLE TO ANSWER QUESTIONS, FOLLOW COMMANDS AND MAKE NEEDS KNOWN. PT HR 70-80'S SINUS RHYTHM, AMIODARONE INFUSING AT 0.5MG/HR, LEVOPHED INFUSING AT 8MCG/MIN TO MAINTAIN MAP >65. PT DECLINES PICC LINE PLACEMENT AND VERBALIZES HIS DESIRE TO HAVE HIS AICD TURNED OFF. PT ON 1LPM VIA NC, OXYGEN SATURATION >95%. PT COMPLAINING OF PAIN IN HIS EXTREMITIES, MEDICATED PER EMAR WITH TYLENOL AND TRAMADOL. PIV TO LEFT AND RIGHT AC, INFUSING. CONDOM CATH IN PLACE DRAINING YELLOW URINE TO GRAVITY. PT HAS HAD MULTIPLE EPISODES OF LOOSE LIQUID STOOLS THIS SHIFT. BED IN LOWEST POSITION, CALL LIGHT WITHIN REACH. CARE CONTINUES.
--- NOTE | 2023-05-20 23:38 | NUR ---
AOS: ON ASUMPTION OF CARE PATIENT WAS RESTING 3L VIA NC SPO2 >94 , LEVO AT 8 AMIODARONE AT .5 CONTIUOUS, VSS MAP >65, DENIES CHEST PAIN, ENDORSES PAIN FROM RECENT AICD DEFIBRILLATIONS. PATIETN A/OX4, COOPERATIVE WITH CARE, HAVING MULTIPLE LOOSE BM'S Q6 CBG'S DAY RN DID NOT PREFORM, NO SIGNS OF HYPOGLYCEMIA. PATIENT DIAPHORETIC/CLAMMY AT TIMES, DVT PROHALZIS WITH ELIQUIS, MIDODRINE Q8.
[2023-05-21] VITALS (57 sets, daily range): BP systolic 76–103; BP diastolic 54–82
[2023-05-21 04:06] LABS: BASOPHILS ABSOLUTE AUTO 0.05 K/mm3 (0.00-0.23); BASOPHILS PERCENT AUTO 0 % (0-2); EOSINOPHILS ABSOLUTE AUTO 0.01 K/mm3 (0.00-0.68); EOSINOPHILS PERCENT AUTO 0 % (0-6); Hematocrit 37.9 % (37.0-53.0); Hemoglobin 12.8 g/dL (13.5-17.5); IMMATURE GRAN ABSOLUTE AUTO 0.11 K/mm3 (0.00-0.10); IMMATURE GRAN PERCENT AUTO 1 % (0-1); LYMPHOCYTES ABSOLUTE AUTO 0.94 K/mm3 (0.84-5.20); LYMPHOCYTES PERCENT AUTO 4 % (21-46); MONOCYTES ABSOLUTE AUTO 0.68 K/mm3 (0.16-1.47); MONOCYTES PERCENT AUTO 3 % (4-13); Mean Corpuscular HGB 29.2 pg (26.0-34.0); Mean Corpuscular HGB Conc 33.8 g/dL (31.5-36.5); Mean Corpuscular Volume 86 fL (80-100); NEUTROPHILS ABSOLUTE AUTO 21.19 K/mm3 (1.96-9.15); NEUTROPHILS PERCENT AUTO 92 % (41-73); Platelet Count 323 K/mm3 (150-400); RDW Standard Deviation 44.2 fL (35.1-46.3); Red Blood Cell Count 4.39 M/mm3 (4.30-5.90); White Blood Cell Count 22.98 K/mm3 (4.00-11.30)
[2023-05-21 04:08] LABS: Mean Platelet Volume 13.5 fL (9.1-12.4)
[2023-05-21 04:25] LABS: Albumin, Blood 2.4 g/dL (3.4-5.0); Albumin/Globulin Ratio 0.6 (0.8-1.8); Bilirubin, Total 0.7 mg/dL (0.1-1.0); Bun/Creatinine Ratio 13.2 (12.0-20.0); Calcium, Blood 7.9 mg/dL (8.5-10.1); Creatinine, Blood 0.99 mg/dL (0.60-1.20); Globulin, Blood 3.7 g/dL (2.2-4.0); Magnesium, Blood 2.2 mg/dL (1.6-2.4); Potassium, Blood 3.6 mmol/L (3.5-5.5); Total Protein, Blood 6.1 g/dL (6.4-8.2)
--- NOTE | 2023-05-21 04:52 | NUR ---
EOS: PATIENT HAS BEEN ALERT AND ORIENTED X 4, [place], COOPERATIVE WITH CARE, DID HAVE ACUTE URINARY RETENTION, PLEASE SEE BLADDER MANAGEMENT. DENIES CHEST PAIN PRESSURE OR SOB. WT AT BEGGINNING OF THE SHIFT WAS ALARMING, NO LONGER SINCE TELE LEADS CHANGED. PATIENT HAS BEEN RUNNING LEVO SEE ICU FLOW SHEET, ADDITIONALLY, IN REPORT AMIO WAS ENDORSED TO BE RUNNING AT .5 CONTINUOUS, NO APPRECIATE NOTE IN THE CHART. SPOKE WITH DR. DEL RIO, LUI SM TO SWITCH TO AMIO PO 400 BID. OK FOR PERIPHERAL LEVO AT THIS TIME DUE TO PATIENT REFUSING PICC OR OTHER CENTRAL LINE. PATIENT MAP >60 IS GOAL AT THIS TIME. CARDIOLOGY CONSULT HAS BEEN PLACED. PATIENT OVERALL ENDORSES FEELING BETTER, LABS WORSE THAN PREVIOUS PLEASE SEE. REPORT TO FELT DYEING MACHINE TENDER FOR ASSUMPTION OF CARE. NO CONCERNS FROM EITHER REPUBLICAN AT THIS TIME.
--- NOTE | 2023-05-21 06:20 | NUR ---
ASSUMED CARE FROM DEANDRE DWYER AT APPROX 0500. PATIENT REMAINS ALERT AND ORIENTED X4, SLEEPING AT THIS TIME. DR. PITTS IN THIS AM, ORDERS FOR PO AMIO TO START ONCE DRIP IS DONE AND TO BE SCHEDULED TID. ALSO ORDERED PO POTASSIUM.
--- NOTE | 2023-05-21 07:35 | NUR ---
Bedside shift report received from YULIYA Sidhu. The pt is alert, oriented and pleasantly conversant. Appears calm, cooperative and not anxious . Denies any present needs.
--- NOTE | 2023-05-21 10:10 | NUR ---
Pt has been alert and oriented so far all morning, pleasantly conversant. States feels weak and also has dyspnea with activity of turning and repositioning during the bed bath. Spo2 90% on room air; oxygen back on at 1 l/min and spo2 improved to 95% after recovery, at rest. Levophed titrated down to 4 mcg dose at this time as MAP has been consistently above 70 for the past 4 hours. SR with BBB and first degree HB noted by bedside cardiac montoring. Pt had some left shoulder pain with movement, and also has limited ROM due to pain; he says a doctor told him that it might be due to his AICD discharging so often. He is resting in bed right now with lights dimmed per his request, eyes closed, waiting for his and daughter to come visit him today.
--- NOTE | 2023-05-21 10:18 | NUR ---
Urine color noted to be pink tinged, turbid.
--- NOTE | 2023-05-21 11:39 | NUR ---
Pt is talking with Chaplain Shon. At the bedside are the pt's Osito and his daughter Cecy.
--- NOTE | 2023-05-21 11:59 | NUR ---
"Spiritual Care Visit | Pt. Request Pt. is awake in bed and welcomes my visit. Pts. spouse and daughter are present at bedside and are supportive. Facilitated a lengthy life review with the Pt. and spouse. Listened with empathy and calming presence. When it was appopriate, personal richmond and belief were considered. Pt. displayed evidence of emotion and some tears were shed. With Pts. approval prayer is made on behalf of the family and Pt. After prayer Pts. attending nurse and palliative care nurse arrived. Pt. and family verbalize gratitude for the spiritual care visit."
--- NOTE | 2023-05-21 13:06 | NUR ---
Case Conference: Family meeting this am with patient, , daughter and son in law present. The patient stated he wants his defibrillator turned off, and would like to go home. Family and pt had hospice questions that we discussed. They request to have one more meeting together privately before making a final decision, but the conversation indicated to me they are leaning to home with hospice. Will check in with bedside RN at 1400 today regarding family decision.
--- NOTE | 2023-05-21 13:43 | NUR ---
Pt and family have made the decision for comfort care for patient. Bedside RN calling [facility] to shut off defibrillator, I am ordering comfort meds via Dr. Marti. Family have no preference of Hospice. Will relay this to ICU CM.
--- NOTE | 2023-05-21 14:00 | NUR ---
[facility] here to [facility] off the AICD. Family at bedside. Pt states that he has not yet decided that he did want that. Osito and Daughter Cecy voiced confusion because they said to pt that they thought that it had been decided to turn it off. Pt said he is still thinking about it.
--- NOTE | 2023-05-21 14:02 | NUR ---
Levophed gtt off at this time.
--- NOTE | 2023-05-21 14:36 | NUR ---
Pt has become confused about stopping the defibrillator, didn't allow the Cardiology Dept to d/c it when they arrived, to the suprise of his family. However, we are following through with comfort care and will speak to pt again today regarding the defibrillator.
--- NOTE | 2023-05-21 15:50 | NUR ---
Conversation with patient Koby; his daughter Cecy and Osito are at the bedside as well. Explained in detail about comfort care measures, and answered pt's questions. His and daughter were both asking him about what his wishes are, and affirming that the goal is to follow his wishes for his care. Patient clearly states that he is ready to have the difibrillator turned off. Cecy asked him several times if he was sure about this and he said that he is. [facility]ed [facility] and she will be over shortly.
--- NOTE | 2023-05-21 16:36 | NUR ---
Telephone report given to Lara Goddard RN at this time. Anticipate transfer of pt to room 364 after it is cleaned.
--- NOTE | 2023-05-21 17:01 | NUR ---
Pt c/o feeling like his bladder was too full, unable to void except small amounts. Bladder scan done; >300, <400 cc found. Pt states feels full. He declined staley catheter; states that after straight catheterization he can sometimes go on his own. Says that occasionally straight caths at home, also over the past year. Straight cath with 14 Maori coude catheter. Yellow clear urine evacuated.
--- NOTE | 2023-05-21 17:58 | NUR ---
SHIFT SUMMARY: ASSUMED CARE OF PATIENT UPON HIS TRANSFER FROM ICU AT 1729. TRANSFERRED TO OUR BED USING SLIDER SHEET. C/O 4/10 PAIN IN CHEST, WAS MEDICATED PRIOR TO ARRIVAL. A&O X 4, PLEASANT. ON COMFORT CARE.
--- NOTE | 2023-05-22 04:52 | NUR ---
SHIFT SUMMARY PATIENT A/Ox4, DENIES PAIN NOR DISCOMFOT. CONTINUES ON COMFORT CARE. HR REGULAR AT TIME OF ASSESSMENT, PT STATES Hx OF AFIB, STATES HIS PACER WAS TURNED OFF WHILE IN THE ED. OCCATIONAL INCONTINENCE, ATTENDS IN PLACE. IS ABLE TO USE URINAL WITH ASSST. NO ACUTE CHANES NOTED OVERNIGHT. BED LOCKED AND IN LOWEST POSITION, CALL LIGHT WITHIN REACH.
[2023-05-22 08:20] VITALS: BP 78/66
[2023-05-22 14:46] VITALS: BP 88/67
--- NOTE | 2023-05-22 17:04 | NUR ---
Spiritual Care check in. Pt. is awake in bed and welcomes me for my short visit. Pts. son is also present. Sought to continue to develop a relationship of trust. Pt. verbalized gratitude for the spiritual care visit and welcomed this supervisor taping to visit before he is dicharged for home hospice.
[2023-05-22 17:11] LABS: Source, Urine Foley catheter
[2023-05-22 17:15] LABS: Appearance, Urine Cloudy (Clear); Bilirubin, Urine Neg (Neg); Blood, Urine 5+ (Neg); Color, Urine Yellow (P-Yellow); Glucose Qualitative, Urine Neg (Neg); Ketones, Urine Neg (Neg); Leukocyte Esterase, Urine 3+ (Neg); Nitrite, Urine Pos (Neg); Protein, Urine 2+ (Neg); Specific Gravity, Urine 1.015 (1.003-1.022); Urobilinogen, Urine NORM (Normal)
[2023-05-22 17:40] LABS: Bacteria Many /hpf; Red Blood Cells, Urine TNTC /hpf (0-2); Squamous Epithelial Cells Not Seen /hpf (Few); Transitional Epithelial Cells Rare /hpf (0-Rare); White Blood Cells, Urine TNTC /hpf (0-5)
--- NOTE | 2023-05-22 18:39 | NUR ---
LISHA- PT ALERT AND ORIENTED ON CC AT THIS TIME, HE HAS BP MEDS ORDERED TID, SO VITALS ARE STILL BEING CHECKED PRIOR TO MEDS. PT IS ABLE TO MAKE HIS NEEDS KNOWN. PT HAS URINARY RETENTION AND STRAIGHT CATHS AT HOME, HE HAS DIFFICULTY VOIDING AND LOW BPS MD MATT'D THE FLOW MAX AND HAD A ROBLEDO CATH PLACED FOR CC. PT TO DISCHARGE HOME ON HOSPICE TOMORROW, AFTER EQUIPMENT IS DELIVERED. PT IN BED, FAMILY AT THE BEDSIDE, NO CURRENT S&S OF DISTRESS. CALL LIGHT IN REACH.
[2023-05-22 21:56] VITALS: BP 94/70
--- NOTE | 2023-05-23 04:09 | NUR ---
SHIFT SUMMARY PATIENT ALERT, PLEASANT, FAMILY AT BEDSIDE. CONTINUES ON COMFORT CARE. PAIN MANAGED PER SEP. ROBLEDO IN PLACE DRAINING CLEAR YELLOW URINE. NO ACUTE CHANES NOTED OVERNIGHT. BED LOCKED AND IN LOWEST POSITION, CALL LIGHT WITHIN REACH.
--- NOTE | 2023-05-23 08:44 | NUR ---
DR MEYER AT THE BEDSIDE- PT HAS C/O LEFT TESTICLE PAIN. MD AWARE AND ASSESSED. BLADDER SCAN BEING COMPLETED AT THIS TIME TO CONFIRM CATH IS FLOWING, PT HAS A Hx OF CLOTS. MD IS GOING TO PLACE ORDER FOR ULTRASOUND, TO LOOK FOR TORTION. THERE WAS NO DIFFICULTY WHEN PASSING THE ROBLEDO CATH YESTERDAY PER REPORT FROM MANAGER DISTRIBUTION WHO PLACED IT.
--- NOTE | 2023-05-23 11:43 | NUR ---
SPOKE TO DR MEYER- PT BLADDER SCAN SHOWED 260ML. RECIEVED ORDER TO FLUSH PRN AND BLADDER SCAN Q4 TO VERIFY CATHETER IS DRAINING BLADDER APPROPRIATELY.
--- NOTE | 2023-05-23 14:52 | NUR ---
Spoke with RN Charrer Charissa and discussed case. Pt to D/C home with hospice services and will need a POLST completed. Pt resting in bed upon arrival. Breif review of plan for D/C with hospice with Pt being in agreement. Pt agreeable to complete POLST. Assisted Pt with completing POLST form. POLST given to RN Charrer Charissa who will obtain hospitalist signature. Pt reports no concerns at this time. Palliative Care will remain available
--- NOTE | 2023-05-23 17:42 | NUR ---
SHIFT SUMMARY PT ADMITED TO PAIN IN R TESTICLE THIS AM. ULTRASOUND DONE AND EMAR UPDATED W/ ABX, PLACED ON CONTACT PRECAUTIONS, Q4 BLADDER SCANS AND PRN CATHETER FLUSH. PT A&OX4, BEDREST, POOR PO INTAKE, VOIDING VIA CATHETER, NO BM THIS SHIFT, AND PAIN MANAGED PER EMAR. CALL LIGHT WITHIN REACH AND PT ABLE TO MAKE NEEDS KNOWN.
--- NOTE | 2023-05-24 07:40 | NUR ---
Shift Summary Pt slept well t/o the night. Lugo was frequently flushed to remove clots, attends changed PRN. No c/o of pain, pt states he has no pain tonight. Pt AOx4.
[2023-05-24] MEDS ORDERED: MORP20L PO (09:11)
[2023-05-24] MEDS ORDERED: SULTRIDS PO (09:12)
--- NOTE | 2023-05-24 10:57 | NUR ---
DISCHARGE NOTE- PT WAS GIVEN VERBAL AND WRITTEN DISCHARGE INSTRUCTIONS AND ACKNOWLEDGED UNDERSTANDING OF THEM. ROBLEDO CATH WAS FLUSHED PRIOR TO DISCHARGE HOME. IV'S DC'D PRIOR TO DISCHARGE. PT WAS TAKEN VIA [facility]. NO S&S OF DISTRESS AT THE TIME OF DISCHARGE.
== END 2023-05-24 09:45 | disposition hospice, home (50) | DRG 308 ==
LOC: ER 03:14 → ICUE 05:47 → MEDS 05-21 17:29
PROVIDERS: Internal Medicine; Student in an Organized Health Care Education/Training Program; ADMIT Student in an Organized Health Care Education/Training Program
PROC: 3E033XZ Introduction of Vasopressor into Peripheral Vein, Percutaneous Approach (ICD-10-PCS; principal; 2023-05-20)
DX: I47.20 Ventricular tachycardia, unspecified (principal); I50.23 Acute on chronic systolic (congestive) heart failure; R57.0 Cardiogenic shock; N17.9 Acute kidney failure, unspecified; E27.40 Unspecified adrenocortical insufficiency; C34.90 Malignant neoplasm of unspecified part of unspecified bronchus or lung; C79.70 Secondary malignant neoplasm of unspecified adrenal gland; I48.0 Paroxysmal atrial fibrillation; N40.1 Benign prostatic hyperplasia with lower urinary tract symptoms; Z66 Do not resuscitate; Z51.5 Encounter for palliative care; R33.8 Other retention of urine; N13.9 Obstructive and reflux uropathy, unspecified; E78.5 Hyperlipidemia, unspecified; I25.10 Atherosclerotic heart disease of native coronary artery without angina pectoris; I25.5 Ischemic cardiomyopathy; I73.9 Peripheral vascular disease, unspecified; N45.1 Epididymitis; E87.6 Hypokalemia; I11.0 Hypertensive heart disease with heart failure; R33.9 Retention of urine, unspecified; I25.2 Old myocardial infarction; Z95.1 Presence of aortocoronary bypass graft; Z98.890 Other specified postprocedural states; Z95.810 Presence of automatic (implantable) cardiac defibrillator; Z87.891 Personal history of nicotine dependence; Z79.01 Long term (current) use of anticoagulants; Z79.899 Other long term (current) drug therapy
CPT/HCPCS: 36415; 51701; 70450; 71045; 76870; 80048; 80053; 80069; 81001; 82947; 83735; 84132; 85025; 87040; 87077; 87086; 87147; 87186; 87507; 93005; 93010; 96365; 96367; 96368; 99285-25; A9270; J0282; J1720; J3475; J3480; J7030; J7050; J7060